=== PATIENT | female | born 1940 | race Caucasian/White ===

== ENCOUNTER → 2017-01-16 | Outpatient (CLI) | payer MEDICARE ==
--- NOTE | 2017-01-16 11:35 | MM ---
Reason for exam: follow-up at short interval from prior study. Last mammogram was performed 6 months ago. History: Patient is postmenopausal. Excisional biopsy of the right breast. Took estrogen for 4 years 6 months. Took progesterone for 4 years 6 months. Physical Findings: Nurse did not find any significant physical abnormalities on exam. MG 3D Diag Mammo W/Cad RT CC and MLO view(s) were taken of the right breast. Prior study comparison: July 17, 2016, right breast MG 3d work up w/cad RT. July 10, 2016, bilateral MG 3d screening mammo w/cad. The breast tissue is heterogeneously dense. This may lower the sensitivity of mammography. No significant new findings when compared with previous films. These results were verbally communicated with the patient and result sheet given to the patient on 01/16/17. ASSESSMENT: Benign, BI-RAD 2 RECOMMENDATION: Return to routine screening mammogram schedule for both breasts. Back on schedule.
== END | disposition home or self-care (01) ==
LOC: RADMAMWWP 10:43
PROVIDERS: ATTEND Family Medicine
DX: R92.8 Other abnormal and inconclusive findings on diagnostic imaging of breast (principal)
CPT/HCPCS: G0206; G0279

== ENCOUNTER → 2017-09-25 | Outpatient (CLI) | payer MEDICARE ==
--- NOTE | 2017-09-25 15:51 | CT ---
EXAMINATION TYPE: CT shoulder RT wo con DATE OF EXAM: 09/25/2017 COMPARISON: NONE HISTORY: Right shoulder pain CT DLP: 292.9 mGycm Automated exposure control for dose reduction was used. FINDINGS: Axial, coronal, sagittal and 3-D reconstruction imaging is performed. There is severe arthropathy of the glenohumeral joint with complete loss of joint space. Hypertrophic spurring is noted. Loss of articular cartilage suspected. No evidence of fracture. There is a chronic appearing deformity of the right clavicle. Correlate for history of previous traum a or surgery. Lung fuentes are clear. No consolidation or pneumothorax. Mild hypertrophic and degenerative change of the spine. IMPRESSION: 1. SEVERE ARTHROPATHY OF THE RIGHT SHOULDER WITH COMPLETE LOSS OF GLENOHUMERAL JOINT SPACE. 2. CHRONIC DEFORMITY AND LIKELY PREVIOUS FRACTURE OF THE RIGHT CLAVICLE.
== END | disposition home or self-care (01) ==
LOC: RADCTMAIN 15:04
PROVIDERS: ATTEND Orthopaedic Surgery Sports Medicine
DX: M21.921 Unspecified acquired deformity of right upper arm (principal); M12.9 Arthropathy, unspecified; M19.011 Primary osteoarthritis, right shoulder

== ENCOUNTER → 2017-10-06 | Outpatient (CLI) | payer MEDICARE ==
--- NOTE | 2017-10-08 08:24 | MM ---
Reason for exam: screening (asymptomatic). Last mammogram was performed 9 months ago. History: Patient is postmenopausal. Excisional biopsy of the right breast. Took estrogen for 4 years 6 months. Took progesterone for 4 years 6 months. Physical Findings: A clinical breast exam by your physician is recommended on an annual basis and results should be correlated with mammographic findings. MG 3D Screening Mammo W/Cad Bilateral CC and MLO view(s) were taken. Prior study comparison: January 16, 2017, right breast MG 3d diag mammo w/cad RT. July 10, 2016, bilateral MG 3d screening mammo w/cad. The breast tissue is heterogeneously dense. This may lower the sensitivity of mammography. No significant changes when compared with prior studies. ASSESSMENT: Benign, BI-RAD 2 RECOMMENDATION: Routine screening mammogram of both breasts in 1 year.
== END | disposition home or self-care (01) ==
LOC: RADMAMWWP 16:09
PROVIDERS: ATTEND Family Medicine
DX: Z12.31 Encounter for screening mammogram for malignant neoplasm of breast (principal)
CPT/HCPCS: 77063; 77067

== ENCOUNTER → 2017-10-06 | Outpatient (CLI) | payer MEDICARE | END | disposition home or self-care (01) | LOC: LABPAT 16:31 | PROVIDERS: ATTEND Orthopaedic Surgery Sports Medicine | DX: Z01.812 Encounter for preprocedural laboratory examination (principal) | CPT/HCPCS: 87070 ==

== ENCOUNTER → 2017-10-16 | Outpatient (CLI) | payer MEDICARE ==
[2017-10-16 13:01] LABS: HCT 44.6 % (34.0-46.0); HGB 14.9 gm/dL (11.4-16.0); MCH 29.3 pg (25.0-35.0); MCHC 33.4 g/dL (31.0-37.0); MCV 87.5 fL (80.0-100.0); Mean Platelet Volume 6.9; Platelet Count 319 k/uL (150-450); RDW 13.6 % (11.5-15.5); WBC 5.2 k/uL (3.8-10.6)
[2017-10-16 13:10] LABS: ALT 29 U/L (9-52); AST 32 U/L (14-36); Albumin 4.2 g/dL (3.5-5.0); Alkaline Phosphatase 79 U/L (38-126); Anion Gap 11 mmol/L; Blood Urea Nitrogen 16 mg/dL (7-17); Calcium 9.6 mg/dL (8.4-10.2); Carbon Dioxide 31 mmol/L (22-30); Chloride 96 mmol/L (98-107); Glucose 99 mg/dL (74-99); Potassium 3.6 mmol/L (3.5-5.1); Sodium 138 mmol/L (137-145); Total Bilirubin 0.6 mg/dL (0.2-1.3); Total Protein 7.1 g/dL (6.3-8.2)
[2017-10-16 13:12] LABS: Appearance,Urine Clear (Clear); Bacteria,Urine Rare /hpf; Bilirubin,Urine Negative (Negative); Blood,Urine Negative (Negative); Color,Urine Yellow; Glucose,Urine (UA) Negative (Negative); Ketones,Urine Negative (Negative); Leukocyte Esterase,Urine Small (Negative); Mucus,Urine Rare /hpf; Nitrite,Urine Negative (Negative); PH, Urine 7.5 (5.0-8.0); Protein,Urine Negative (Negative); Specific Gravity,Urine 1.015 (1.001-1.035); Squamous Epithelial Cell,Urine 1 /hpf (0-4); Urobilinogen,Urine <2.0 mg/dL (<2.0); WBC,Urine 4 /hpf (0-5)
[2017-10-16 13:15] LABS: Prothrombin Time 9.6 sec (9.0-12.0)
[2017-10-16 13:31] LABS: Partial Thromboplastin Time 20.9 sec (22.0-30.0)
== END | disposition home or self-care (01) ==
LOC: LABPAT 12:29
PROVIDERS: ATTEND Orthopaedic Surgery Sports Medicine
DX: Z01.812 Encounter for preprocedural laboratory examination (principal); M19.011 Primary osteoarthritis, right shoulder
CPT/HCPCS: 36415; 80053; 81001; 85027; 85610; 85730

== ENCOUNTER 2017-10-29 10:06 | Inpatient (IN) | payer MEDICARE ==
[2017-10-21 15:48] VITALS: BMI 29.2
[~2017-10-29 10:06] MED LIST: ACETAMINOPHEN TAB 500 MG TAB PO ONE; DEXAMETHASONE SOD PHOSPHATE 10 MG/ML 1 ML VIAL IV ONE; HYDROmorphone 0.5 MG/0.5 ML SYRINGE IVP PRN; LIDOCAINE 1% 20 ML VIAL (10MG/ML) FOR IV START INTRADERMA PRN; MELOXICAM 7.5 MG TAB PO ONE; MIDAZOLAM 2 MG/2 ML VIAL IV PRN; MORPHINE SULFATE 2 MG/ML SYRINGE IV PRN; ONDANSETRON 4 MG/2 ML VIAL IVP ONE; SCOPOLAMINE 1.5MG/72HR PATCH TRANSDERM ONE; TRANEXAMIC ACID 1,000 MG in SODIUM CHLORIDE 0.9% 50 ML IVPB ONE; ceFAZolin IN SWFI 2 GM/20 ML SYRINGE IVP ONE; fentaNYL (PF) 50 MCG/ML 2 ML AMP IV PRN
[2017-10-29] MEDS: LACTATED RINGERS 1,000 ML IV SCH ×2 (10:46→15:49)
[2017-10-29] MEDS ORDERED: MIDAZOLAM 2 MG/2 ML VIAL IV ONE (11:11)
[2017-10-29] MEDS ORDERED: ceFAZolin 3,000 MG in SODIUM CHLORIDE 0.9% IRRIGATIO 3,000 ML IRRIGATION ONE (12:35)
[2017-10-29] MEDS ORDERED: LACTATED RINGERS 1,000 ML IV ONE (13:00)
[2017-10-29] MEDS ORDERED: VANCOMYCIN 1,000 MG VIAL MISCELLANE ONE (13:23)
[2017-10-29] MEDS ORDERED: SENNOSIDES-DOCUSATE SODIUM 1 EACH TAB PO PRN (14:29)
[2017-10-29] MEDS ORDERED: METOCLOPRAMIDE 5 MG/ML 2 ML VIAL IVP PRN (14:29)
[2017-10-29] MEDS ORDERED: ONDANSETRON 4 MG/2 ML VIAL IVP PRN (14:29)
[2017-10-29] MEDS ORDERED: TEMAZEPAM 15 MG CAP PO PRN (14:29)
[2017-10-29] MEDS ORDERED: diphenhydrAMINE 25 MG CAP PO PRN (14:29)
[2017-10-29] MEDS ORDERED: MORPHINE SULFATE/PF 10MG/10ML VL IVP PRN ×3 (14:29)
--- NOTE | 2017-10-29 15:06 | XR ---
Right shoulder HISTORY: Status post right shoulder arthroplasty Single frontal view of the right shoulder correlated to prior exam 02/20/2012 Patient is status post right shoulder arthroplasty. There is an indwelling drain. Alignment is anatom ic. Right lung apex as visualized is normal. Distal right clavicle shows a similar appearance, possib le old fracture. IMPRESSION: Orthopedic follow-up.
[2017-10-29] MEDS: ceFAZolin IN SWFI 2 GM/20 ML SYRINGE IVP SCH (15:49)
--- NOTE | 2017-10-29 16:30 | OP ---
OPERATIVE REPORT DATE OF PROCEDURE: 10/29/2017 SURGEON: Jeffrey Cain MD MOLTEN IRON POURER: bL Herman PA-C PREOPERATIVE DIAGNOSIS: Right shoulder osteoarthrosis. POSTOPERATIVE DIAGNOSIS: Right shoulder osteoarthrosis. OPERATION: 1. Right total shoulder arthroplasty. 2. Right long head of the biceps tenodesis. ANESTHESIA: General endotracheal. ESTIMATED BLOOD LOSS: 100 mL. DRAINS: One deep drain. COMPLICATIONS: None apparent. DISPOSITION: Postanesthesia Care Unit. INDICATIONS: Mrs. Leon is a very pleasant 77-year-old female with long-standing right shoulder pain. Workup including x-rays and CT scan revealed advanced right shoulder osteoarthrosis. At this point, it is felt that she has failed conservative management and she would like to proceed with operative intervention. The risks of the procedure were discussed with her in detail. These risks include but are not limited to risk of infection, nerve damage, bleeding, pain, instability in the shoulder, loosening of the implants and deep infection. There is also a small risk of deep vein thrombosis which could lead to fatal pulmonary embolism. The patient understood the risks. All of her questions with regard to the risks of the procedure were answered to her satisfaction. Appropriate informed consent was obtained. DESCRIPTION OF PROCEDURE: The patient was identified in the preoperative holding area. Surgical site was marked by both the patient and myself. She was given 2 grams of Ancef IV for prophylactic purposes. She was then transferred to the operative suite. She was placed supine on the operating room table. General anesthetic was then administered and dosed per the anesthesia department without apparent complication. Examination under anesthesia was then performed of the right shoulder. She had passive elevation to 120 degrees. External rotation at the side was to 30 degrees. The patient's right upper extremity was then prepped and draped in the usual sterile fashion. Standard surgical pause was then undertaken to ensure that we were operating on the correct site and that appropriate preoperative antibiotics had been given. All staff in the room were in agreement and we proceeded. The acromion, AC joint, clavicle and coracoid were marked with a surgical pen. A planned incision starting at the level of the clavicle and extending distally over the deltopectoral interval approximately 1 cm lateral to the coracoid was marked with a surgical pen. The incision was then made with a 10-blade scalpel. Dissection was carried down sharply to the deltoid fascia. The deltopectoral interval was identified at the level of the clavicle. A small band retractor was placed under the proximal deltoid. I then released the deltoid fascia on the lateral aspect of the cephalic vein. The vein was then left in its bed medially. The cephalic vein was protected throughout the entire case. I then identified the clavipectoral fascia. It was incised proximally to the level of the coracoacromial ligament. The coracoacromial ligament was left intact. I then used my finger to spread the interval between the conjoint tendon and the subscapularis. I felt for the axillary nerve, which was readily palpable. I then cleared the subacromial and subdeltoid spaces of bursal and scar tissue. I then utilized a Parrish retractor to hold the deltoid and expose the humeral head. I then proceeded with release of the subscapularis and the anterior inferior shoulder capsule. The rotator cuff was inspected. It was found to be intact. The rotator interval was identified. The course of the biceps tendon was also identified. I then released the rotator interval. It was released at the base of the coracoid and then out laterally. The subscapularis and capsule were then released intratendinously. The subscapularis and capsule were released and extended distally in a lazy-S fashion approximately 1 cm medial to the biceps tendon. I then incised the long head of the biceps tendon sheath. I then performed an in situ tenodesis of the long head of the biceps tendon with 0 Vicryl interrupted suture. The aspect of the biceps proximal to the tenodesis was then tenotomized and removed. I then continued to release the capsule along the inferior neck in a vertical fashion to about the 6 o'clock position. Great care was taken to ensure that the capsule was always visualized as it was released to avoid injuring the axillary nerve. I then brought a Shetty newsstand vendor with the arm externally rotated and abducted. I continued to release the capsule inferomedially to the 4 o'clock position. The inferior osteophytes were now removed as well. This was done with a rongeur. I then proceeded with preparation of the humerus. I removed all the goat's crane osteophytes. I then removed the subchondral plate from the superior aspect of the humeral head utilizing a large rongeur. I then used a starter reamer to gain access to the humeral canal. This was 1 cm medial to the rotator cuff insertion and 1 cm posterior to the bicipital groove. I then prepared the humeral canal with hand reaming. I started with a 5 mm reamer and progressed in 1 mm increments until firm resistance was encountered. This was at 7 mm. The reamer handle was then left in place. I then utilized the humeral resection guide. This was set at 30 degrees of retrotorsion. The cutting block was then set 1 to 2 mm above the insertion of the rotator cuff. I then proceeded to osteotomize the head with an oscillating saw. I removed the resection guide and then completed the osteotomy. I then proceeded with trial stem placement. A trial size 7 was then broached in the canal, at first starting with a 5 mm broach and then up to a 7 broach. The 7 trial stem was then left in place. I then proceeded with a trial reduction. I started with a 38 x 19 x 39 head. This fit very nicely. The head fit opposite the glenoid. The rotator cuff was not tented. Internal rotation was at 90 degrees. Elevation was to 150 degrees and translation was one half of the head in neutral rotation and inferiorly one quarter of the head in 15 to 20 degrees of abduction. I then removed the trial head. The stem was left in place. This was done to protect the proximal humerus. I then proceeded with exposure of the glenoid. At this point, I did release the remainder of the biceps tendon. This was tenotomized at the level of the superior labrum. A bone hook was then used to pull the humerus out laterally. I inspected the joint for loose bodies. There was a very large loose body in the inferior recess. This was removed. The condition of the rotator cuff was again inspected. It was in excellent condition. The Bhattman retractor was then placed on the posterior glenoid rim. The arm was placed in approximately 80 degrees of abduction and in slight flexion on the Shetty stand. I then proceeded to remove the hypertrophic labrum to definitively identify the actual glenoid. I then selected the size of the glenoid. A small-sized glenoid seemed to fit very nicely. I then utilized a starter drill to make the centering hole. I then proceeded to ream the glenoid fossa. This was done with a small-sized reamer. The reaming was taken down to paprika signs. I had a nice bleeding surface. There was a tiny bit of posteroinferior loss. I preferentially took off slightly more anterior glenoid with reaming. I then proceeded to place the glenoid drill holes. The peripheral drill holes were then placed and centered. The center hole was then drilled as well. I then placed a trial size small glenoid and it fit very nicely onto the glenoid. I then proceed with cementing. I used a Waterpik around the wound and the bone with antibiotic-impregnated saline solution. The drill holes were then packed with Ray-Carly sponges. The cement was then mixed on the back table by the political science research assistant. The drill holes were then packed with cement utilizing a 20 mL cement syringe. These were packed very tightly. No cement was placed in the central holes. A small amount of cement was then placed on to the posterior aspect of the real glenoid component as well. I then impacted the real glenoid component into place. It was a Biomet small-sized pegged glenoid component with a Regenerex central peg. Excess cement was removed utilizing the freer elevator. Pressure was held onto the glenoid component until the cement had hardened. I then removed the Bhattman retractor. I then proceeded with humeral component trial reduction with the glenoid. The 38 x 19 x 39 head was then placed back onto the stem. Again this was taken through a trial. The head set opposite the glenoid. The rotator cuff was not tented. Elevation was 150 degrees, internal rotation to 90 degrees and translation was one half of the head in neutral rotation and one quarter of the head in 15 to 20 degrees of abduction. I then had the phlebotomy services representative open the 38 x 19 x 39 real head, a size 7 Biomet Mini Stem. The stem was then impacted into the canal and 30 degrees of retrotorsion. The real head was then impacted onto the stem. The shoulder was reduced. I then proceeded with closure. The wound was again thoroughly irrigated with sterile saline solution with antibiotic added. The rotator interval was closed with 0 Vicryl interrupted suture. The subscapularis and anterior capsule was closed with #2 FiberWire interrupted suture. A deep drain was then placed and brought out superiorly away from the incision. Approximately 500 mg of vancomycin powder was then spread deeply in the wound. I then closed the deltopectoral interval with 0 Vicryl interrupted suture. Again the wound was thoroughly irrigated at this point. The remaining 500 mg of vancomycin powder was then placed into the wound. Subcutaneous tissue was then closed with 2-0 Vicryl interrupted suture and the skin was closed with a running 3-0 Quill suture. Sterile compressive dressing was then applied. The patient's right upper extremity was placed into a shoulder immobilizer. All sponge and needle counts were deemed correct prior to closure. The patient tolerated the procedure without apparent complication. She was transferred to the recovery room in stable condition. CELY / MITZY: [id number] /
--- NOTE | 2017-10-29 18:36 | P.ONQ ---
Anesthesiology Proc Note - PNB - Peripheral Nerve Block Performed Right Interscalene Single Time Out Performed: Yes Procedure Start Time: 11:10 Procedure Stop Time: 11:16 Indication: Acute Post-Operative Pain, Requested by physician Sedation Type: Sedate with meaningful contact maintained Preparation: Sterile Prep Position: Supine Needle Size: 100mm (4") Needle Gauge: 21 Technique: Ultrasound Injectate: 0.5% Ropivacaine (see comment for volume) (ropi .5% 30cc) Blood Aspirated: No Pain Paresthesia on Injection Noted: No Resistance on Injection: Normal Events: Uneventful and Well Tolerated
--- NOTE | 2017-10-29 20:51 | CONS ---
CONSULTATION DATE OF CONSULTATION: 10/29/2017. REASON FOR CONSULTATION: Advice regarding hypertension, hyperlipidemia, and other medical issues requested by Dr. Cain. HISTORY OF PRESENT ILLNESS: This 77-year-old woman with a past history of hypertension, DJD, history of constipation, history of UTI, anxiety, depression, anxiety being followed by primary physician in the outpatient setting, underwent right total shoulder arthroplasty by Dr. Cain. There is no history of chest pain. No palpitations. No history of headache, loss of consciousness, nausea, vomiting, diarrhea, fever, rigors or chills at this time. PAST MEDICAL HISTORY: Hypertension, hyperlipidemia, DJD, history of thyroid disorders, recurrent UTI. MEDICATIONS: Medications prior to admission include: 1. Effexor XR 75 mg q.h.s. 2. Bactrim DS 1 p.o. b.i.d. 3. Pravastatin 80 mg q.h.s. 4. Centrum 1 p.o. daily. 5. Levothyroxine 100 mcg p.o. daily. 6. Probiotic 1 capsule p.o. daily. 7. Hydrochlorothiazide 25 mg q.a.m. 8. Osteo Bi-Flex 1 tab p.o. daily. 9. Ecotrin 81 mg. ALLERGIES: None. FAMILY HISTORY: History of cancer, throat laryngeal cancer. SOCIAL HISTORY: Previous of smoking. Occasional alcohol intake. REVIEW OF SYSTEMS: ENT: No diminished hearing or vision. CARDIOVASCULAR: No angina or palpitations. Respiratory: No cough or hemoptysis. GI no nausea or vomiting. no dysuria or hematuria. Nervous system: No numbness, weakness. Allergy/Immunology: No asthma or hayfever. Musculoskeletal as mentioned earlier. Hematology/Oncology: No history of anemia. Endocrine: No history of diabetes. Hypothyroidism present. Constitutional: As mentioned earlier. Dermatology: Negative. Rheumatology: Negative. Psychiatric: As mentioned earlier. PHYSICAL EXAMINATION: Patient is alert, oriented times three. Pulse 99, blood pressure 106/68, respiration 18, temperature 98 degrees, pulse ox 94% on room air. HEENT is conjunctivae normal. Oral mucosa moist. Neck is no jugular venous distention. No carotid bruit. No lymph node enlargement. Cardiovascular: S1, S2 muffled. No S3, no S4. Respiratory: Breath sounds diminished in the bases. No rhonchi and no crackles. ABDOMEN: Soft, nontender. No mass palpable. Legs no edema and no swelling. NERVOUS SYSTEM: Higher functions as mentioned earlier, moves all 4 limbs, no focal motor or sensory deficits. Lymphatics: No lymph nodes palpable in the neck, axillae or groin. SKIN: No ulcers, rash or bleeding. Examination of the shoulder status post shoulder arthroplasty. LABORATORY DATA: CBC within normal limits. INR within normal limits. CO2 is 31, otherwise UA shows possibly UTI. ASSESSMENT: 1. Status post right total shoulder arthroplasty. 2. Hypertension. 3. Hyperlipidemia. 4. Recent urinary tract infection. 5. Degenerative joint disease. 6. History of constipation. 7. History of degenerative joint disease. 8. History of anxiety. 9. Remote history of nicotine dependence. RECOMMENDATIONS AND DISCUSSION: This 77-year-old woman who presented with multiple medical issues, at this time I recommend to continue current management. Continue symptomatic treatment. Recommend repeat labs, CBC, DVT prophylaxis. Resume the home medications. Otherwise I would also recommend a repeat UA. We will follow the patient closely with you and the patient may be asked to follow up with primary physician in the outpatient setting. Thank you Dr. Ant Aguirre for letting us participate in the care of this patient. MMODL / IJN: [id number] /
[2017-10-29] MEDS: HYDROcodone/APAP 5-325MG 1 EACH TAB PO PRN (20:59)
[2017-10-29] MEDS: PRAVASTATIN SODIUM 80 MG TAB PO SCH (21:00)
[2017-10-29] MEDS: VENLAFAXINE HCL ER 75 MG CAP PO SCH (21:00)
[2017-10-29] MEDS: SULFAMETHOX-TMP 800-160MG 1 EACH TAB PO SCH (21:00)
[2017-10-30] MEDS: ceFAZolin IN SWFI 2 GM/20 ML SYRINGE IVP SCH (00:25)
[2017-10-30] MEDS: LACTATED RINGERS 1,000 ML IV SCH ×4 (00:26→16:51)
[2017-10-30] MEDS: HYDROcodone/APAP 5-325MG 1 EACH TAB PO PRN ×3 (05:02→16:51)
[2017-10-30 05:19] LABS: Appearance,Urine Clear (Clear); Bilirubin,Urine Negative (Negative); Blood,Urine Negative (Negative); Color,Urine Yellow; Glucose,Urine (UA) Negative (Negative); Ketones,Urine Negative (Negative); Leukocyte Esterase,Urine Small (Negative); Mucus,Urine Rare /hpf; Nitrite,Urine Negative (Negative); Protein,Urine Negative (Negative); RBC,Urine 1 /hpf (0-5); Specific Gravity,Urine 1.018 (1.001-1.035); Squamous Epithelial Cell,Urine 1 /hpf (0-4); Urobilinogen,Urine <2.0 mg/dL (<2.0); WBC,Urine 7 /hpf (0-5)
[2017-10-30] MEDS: LEVOTHYROXINE 100 MCG TAB PO SCH (05:20)
[2017-10-30 07:56] LABS: Basophils % (A) 0 %; Eosinophils % (A) 0 %; HCT 32.7 % (34.0-46.0); Lymphocytes % (A) 10 %; MCH 29.4 pg (25.0-35.0); MCV 86.4 fL (80.0-100.0); Mean Platelet Volume 7.4; Monocytes # (A) 0.7 k/uL (0-1.0); Monocytes % (A) 7 %; Neutrophils # (A) 8.1 k/uL (1.3-7.7); Neutrophils % (A) 81 %; Platelet Count 238 k/uL (150-450); RBC 3.78 m/uL (3.80-5.40); RDW 13.8 % (11.5-15.5); WBC 9.9 k/uL (3.8-10.6)
[2017-10-30 07:58] LABS: HGB 11.1 gm/dL (11.4-16.0)
[2017-10-30] MEDS: HYDROCHLOROTHIAZIDE 25 MG TAB PO SCH (08:30)
[2017-10-30] MEDS: SULFAMETHOX-TMP 800-160MG 1 EACH TAB PO SCH ×2 (08:30→20:19)
[2017-10-30] MEDS: ASPIRIN 81 MG PO SCH (08:30)
[2017-10-30] MEDS: hydrOXYzine PAMOATE 25 MG CAP PO PRN ×2 (10:59→16:52)
--- NOTE | 2017-10-30 11:32 | P.PN ---
Subjective Progress Note Date: 10/30/17 Principal diagnosis: s/p right total shoulder Patient is seen at bedside this morning. She is postop day #1 from a right total shoulder arthroplasty. She has pain at the surgical site as expected but denies any new complaints. She denies numbness, tingling or calf pain. Review of systems is negative for fever, chills, chest pain, shortness of breath or other Objective - Vital Signs Vital signs: Vital Signs Temp 98.9 F 10/30/17 08:31 Pulse 97 10/30/17 08:31 Resp 17 10/30/17 08:31 BP 103/56 10/30/17 08:31 Pulse Ox 96 10/30/17 08:31 Intake & Output 10/29/17 10/30/17 10/30/17 18:59 06:59 18:59 Intake Total 1351 1800 Output Total 100 Balance 1251 1800 Weight 72.575 kg Intake: IV 1351 Intake, IV Titration 1150 Amount Lactated Ringers 1,000 ml 1150 @ 100 mls/hr IV .Q10H [facility] Rx#:[id number] Oral 650 Output: Estimated Blood Loss 100 Other: Voiding Method Toilet Toilet # Voids 2 1 - Exam Inspection reveals a benign surgical wound. There is no active bleeding or drainage. Neurovascular status is intact throughout the upper extremity with motor and sensation fully intact. 2+ radial pulse and less than 2 sec cap refill present. Calf is soft and nontender. 2+ dorsalis pedis pulse and less than 2 second cap refill is present distally in LEs - Constitutional General appearance: Present: no acute distress - Psychiatric Psychiatric: Present: A&O x's 3, appropriate affect, intact judgment & insight - Labs CBC & Chem 7: 10/30/17 06:48 Labs: Abnormal Lab Results - Last 24 Hours (Table) 10/30/17 10/30/17 Range/Units 05:00 06:48 RBC 3.78 L (3.80-5.40) m/uL Hgb 11.1 L D (11.4-16.0) gm/dL Hct 32.7 L (34.0-46.0) % Neutrophils # 8.1 H (1.3-7.7) k/uL Ur Leukocyte Esterase Small H (Negative) Urine WBC 7 H (0-5) /hpf Urine Mucus Rare H (None) /hpf Assessment and Plan (1) Osteoarthritis of right shoulder Narrative/Plan: She will continue with routine postop orthopedic protocol including pain management, wound care, DVT prophylaxis and medical management. Expect that she will discharge to home tomorrow. Current Visit: Yes Status: Acute Priority: Medium Code(s): M19.011 - PRIMARY OSTEOARTHRITIS, RIGHT SHOULDER SNOMED Code(s): 159141457133394 Time with Patient: Less than 30
[2017-10-30] MEDS ORDERED: LEVOFLOXACIN 500MG-D5W PMX 500 MG in DEXTROSE/WATER 1 100ML.BAG IVPB SCH (12:00)
[2017-10-30] MEDS ORDERED: MULTIVITAMINS, THERA 1 EACH TAB PO SCH (12:00)
--- NOTE | 2017-10-30 19:46 | PN ---
PROGRESS NOTE DATE OF SERVICE: 10/30/2017 This 77-year-old woman who was admitted after right shoulder arthroplasty is improving, being monitored. Patient improved significantly. No chest pain. No palpitations. No fever. EXAM: Alert and oriented times three. Pulse 98. Blood pressure 92/52, respiration 16, temperature 98.4, pulse ox 97% on room air. HEENT: Conjunctivae normal. Oral mucosa moist. Neck: No jugular venous distention. Cardiovascular: S1, S2 muffled. Respiration: Breath sounds diminished in the bases. No rhonchi. No crackles. Abdomen is soft, nontender. Legs: No edema and no swelling. Central nervous system: No focal deficits. Right shoulder status post arthroplasty. LAB STUDIES: WBC 9.9, hemoglobin 11.1. UA noted. ASSESSMENT: 1. Status post right shoulder arthroplasty. 2. Hypertension. 3. Urinary tract infection present on admission. 4. Hyperlipidemia. 5. Degenerative joint disease. 6. History of constipation. 7. History of anxiety. 8. Remote history of nicotine dependence. RECOMMENDATIONS AND DISCUSSION: Recommend to continue current medications, management and symptomatic treatment. I would recommend a course of antibiotics. Closely monitor urine culture. Incentive spirometry. DVT prophylaxis. We will follow the patient closely with you. Thank you Dr. Cain. MMMIKEL / IJN: [id number] /
[2017-10-30] MEDS: PRAVASTATIN SODIUM 80 MG TAB PO SCH (20:19)
[2017-10-30] MEDS: VENLAFAXINE HCL ER 75 MG CAP PO SCH (20:19)
[2017-10-30] MEDS: HEPARIN SODIUM,PORCINE 5,000 UNIT/ML 1 ML VIAL SQ SCH (20:19)
[2017-10-31] MEDS: LACTATED RINGERS 1,000 ML IV SCH ×2 (03:10→05:43)
[2017-10-31] MEDS: HYDROcodone/APAP 5-325MG 1 EACH TAB PO PRN ×2 (03:55→11:20)
[2017-10-31] MEDS: hydrOXYzine PAMOATE 25 MG CAP PO PRN (03:55)
[2017-10-31] MEDS: LEVOTHYROXINE 100 MCG TAB PO SCH (06:01)
[2017-10-31 07:34] LABS: Anion Gap 8 mmol/L; Blood Urea Nitrogen 13 mg/dL (7-17); Calcium 8.8 mg/dL (8.4-10.2); Carbon Dioxide 32 mmol/L (22-30); Chloride 95 mmol/L (98-107); Glucose 89 mg/dL (74-99); Sodium 135 mmol/L (137-145)
[2017-10-31] MEDS: HEPARIN SODIUM,PORCINE 5,000 UNIT/ML 1 ML VIAL SQ SCH (09:10)
[2017-10-31] MEDS: HYDROCHLOROTHIAZIDE 25 MG TAB PO SCH (09:10)
[2017-10-31] MEDS: ASPIRIN 81 MG PO SCH (09:10)
[2017-10-31] MEDS: SULFAMETHOX-TMP 800-160MG 1 EACH TAB PO SCH (09:11)
--- NOTE | 2017-10-31 09:16 | P.DS ---
Providers Date of admission: 10/29/17 10:06 Expected date of discharge: 10/31/17 Attending physician: Jeffrey Cain Consults: 10/29/17 14:29 Consult Physician Routine Consulting Provider: Sabino Bajwa Consult Reason/Comments: post op medical management Do you want consulting provider notified?: Yes Primary care physician: Turner Marquez - Discharge Diagnosis(es) (1) Osteoarthritis of right shoulder Patient was admitted to the OR on 10/29/2017 to undergo Right Total Shoulder Arthroplasty. She had failed conservative measures as an outpatient and desired to proceed with elective surgery after given informed consent She underwent the above procedure which she tolerated well without complication. Postoperative hospital course has remained without complication. On day of discharge she is afebrile, vital signs stable, labs within acceptable ranges, tolerating by mouth meds and diet, voiding without difficulty, positive flatus, denies abdominal pain or calf pain, pain is controlled on oral pain medication and has no new complaints. Wound is benign, neurovascular status is intact, calf is soft and nontender, abdomen soft and nontender. Review of systems is negative for numbness, tingling, fever, chills, chest pain, shortness breath, nausea, vomiting, dizziness, headaches, slurred speech or other. Current Visit: Yes Status: Acute Priority: Medium Procedures: Right Total Shoulder Patient Condition at Discharge: Good Plan - Discharge Summary Discharge Rx Participant: Yes New Discharge Prescriptions: New Docusate [Colace] 100 mg PO BID #60 capsule Doxycycline Hyclate 100 mg PO BID #10 tab HYDROcodone/APAP 7.5-325MG [[place] 7.5-325] 1 - 2 tab PO Q6HR PRN #60 tab PRN Reason: Pain No Action Sulfamethox-Tmp 800-160Mg [Bactrim DS 800-160 mg] 1 tab PO Q12HR Venlafaxine HCl ER [Effexor Xr] 75 mg PO HS Pravastatin Sodium 80 mg PO HS Multivit-Min/FA/Lycopen/Lutein [Centrum Silver Tablet] 1 tab PO DAILY Levothyroxine Sodium 100 mcg PO QAM L.acidoph,Paracasei, B.lactis [Probiotic] 1 cap PO DAILY Hydrochlorothiazide 25 mg PO QAM Glucosamine/Chondr De Leon A Sod [Osteo Bi-Flex Caplet] 1 tab PO DAILY Aspirin [Adult Low Dose Aspirin EC] 81 mg PO DAILY Discharge Medication List Aspirin [Adult Low Dose Aspirin EC] 81 mg PO DAILY 10/21/17 [History] Glucosamine/Chondr De Leon A Sod [Osteo Bi-Flex Caplet] 1 tab PO DAILY 10/21/17 [ History] Hydrochlorothiazide 25 mg PO QAM 10/21/17 [History] L.acidoph,Paracasei, B.lactis [Probiotic] 1 cap PO DAILY 10/21/17 [History] Levothyroxine Sodium 100 mcg PO QAM 10/21/17 [History] Multivit-Min/FA/Lycopen/Lutein [Centrum Silver Tablet] 1 tab PO DAILY 10/21/17 [ History] Pravastatin Sodium 80 mg PO HS 10/21/17 [History] Sulfamethox-Tmp 800-160Mg [Bactrim DS 800-160 mg] 1 tab PO Q12HR 10/21/17 [ History] Venlafaxine HCl ER [Effexor Xr] 75 mg PO HS 10/21/17 [History] Docusate [Colace] 100 mg PO BID #60 capsule 10/31/17 [Rx] Doxycycline Hyclate 100 mg PO BID #10 tab 10/31/17 [Rx] HYDROcodone/APAP 7.5-325MG [[place] 7.5-325] 1 - 2 tab PO Q6HR PRN #60 tab [Rx] Follow up Appointment(s)/Referral(s): Jeffrey Cain MD [STAFF PHYSICIAN] - 10 Days Activity/Diet/Wound Care/Special Instructions: Keep wound clean and dry Take meds as directed Follow-up with Dr. Cain in office Weight bear as tolerated Discharge Disposition: HOME WITH HOME HEALTH SERVICES
[2017-10-31 13:31] VITALS: BP 116/56; PULSE 94; RESP 16; TEMP 98.2
--- NOTE | 2017-10-31 14:14 | PN ---
PROGRESS NOTE DATE OF SERVICE: 10/31/2017 This 77-year-old woman was admitted with right shoulder arthroplasty, also had UTI. No chest pain. No palpitations. No fever. EXAM: Alert and oriented times three. Pulse 101. Blood pressure 130/60, respiration 18, temperature 98.2, pulse ox 94% on room air. HEENT: Conjunctivae normal. Neck is no jugular venous distention. Cardiovascular: S1, S2 muffled. Respiratory: Breath sounds diminished in the bases. No rhonchi and no crackles. Abdomen is soft, nontender. Legs are no edema. No swelling. central nervous system: No focal deficits. Right shoulder status arthroplasty. LABS: Noted. ASSESSMENT: 1. Status post right shoulder arthroplasty. 2. Hypertension. 3. Urinary tract infection present on admission. 4. Hyperlipidemia. 5. Degenerative joint disease. 6. History of constipation. 7. History of anxiety. 8. Remote history of nicotine dependence. RECOMMENDATIONS AND DISCUSSION: Recommend to continue current medication, continue symptomatic treatment. Otherwise, at this time, I recommend continue the current medications. Course of antibiotics. Otherwise recommend to closely follow up with primary physician in the outpatient setting. Further recommendations to follow. The rest of the recommendations per Orthopedic surgery. Further recommendations to follow. MMODL / IJN: [id number] /
== END 2017-10-31 14:15 | disposition home health service (06) | DRG 483 ==
LOC: 2ORMAIN 10:06 → 3SUR 14:27
PROVIDERS: ADMIT Orthopaedic Surgery Sports Medicine; ATTEND Orthopaedic Surgery Sports Medicine
PROC: 0LS30ZZ Reposition Right Upper Arm Tendon, Open Approach (ICD-10-PCS; 2017-10-29)
PROC: 0RRJ0JZ Replacement of Right Shoulder Joint with Synthetic Substitute, Open Approach (ICD-10-PCS; principal; 2017-10-29 12:00)
DX: M19.011 Primary osteoarthritis, right shoulder (principal); N39.0 Urinary tract infection, site not specified; E03.9 Hypothyroidism, unspecified; E78.5 Hyperlipidemia, unspecified; I10 Essential (primary) hypertension; M19.90 Unspecified osteoarthritis, unspecified site; F32.9 Major depressive disorder, single episode, unspecified; K59.09 Other constipation; E66.3 Overweight; M25.711 Osteophyte, right shoulder; E78.2 Mixed hyperlipidemia; F41.9 Anxiety disorder, unspecified; Z79.899 Other long term (current) drug therapy; Z79.02 Long term (current) use of antithrombotics/antiplatelets; Z87.891 Personal history of nicotine dependence; Z80.2 Family history of malignant neoplasm of other respiratory and intrathoracic organs; Z87.440 Personal history of urinary (tract) infections; Z79.82 Long term (current) use of aspirin; Z90.49 Acquired absence of other specified parts of digestive tract; Z83.3 Family history of diabetes mellitus; Z98.51 Tubal ligation status; Z68.29 Body mass index [BMI] 29.0-29.9, adult; Z71.3 Dietary counseling and surveillance
CPT/HCPCS: 64415; 80048; 81001; 85025; 87086; 88300

== ENCOUNTER 2017-11-05 13:46 | Emergency (ER) | payer MEDICARE ==
[2017-11-05 15:34] LABS: Basophils # (A) 0.1 k/uL (0-0.2); Basophils % (A) 1 %; Eosinophils # (A) 0.2 k/uL (0-0.7); Eosinophils % (A) 2 %; HCT 38.6 % (34.0-46.0); HGB 12.7 gm/dL (11.4-16.0); Lymphocytes # (A) 1.2 k/uL (1.0-4.8); Lymphocytes % (A) 18 %; MCH 29.1 pg (25.0-35.0); MCV 88.1 fL (80.0-100.0); Mean Platelet Volume 6.9; Monocytes # (A) 0.5 k/uL (0-1.0); Monocytes % (A) 7 %; Neutrophils # (A) 5.1 k/uL (1.3-7.7); Neutrophils % (A) 71 %; Platelet Count 367 k/uL (150-450); RBC 4.38 m/uL (3.80-5.40); WBC 7.1 k/uL (3.8-10.6)
[2017-11-05 15:48] LABS: Anion Gap 11 mmol/L; Blood Urea Nitrogen 12 mg/dL (7-17); Calcium 9.6 mg/dL (8.4-10.2); Carbon Dioxide 33 mmol/L (22-30); Chloride 92 mmol/L (98-107); Glucose 98 mg/dL (74-99); Potassium 4.1 mmol/L (3.5-5.1); Sodium 136 mmol/L (137-145)
--- NOTE | 2017-11-05 16:56 | US ---
EXAMINATION TYPE: US venous doppler duplex LE RT DATE OF EXAM: 11/05/2017 3:43 PM COMPARISON: NONE CLINICAL HISTORY: Pain. Pt states right leg pain, recent shoulder surgery SIDE PERFORMED: Right TECHNIQUE: The lower extremity deep venous system is examined utilizing real time linear array sonog jayne with graded compression, doppler sonography and color-flow sonography. VESSELS IMAGED: External Iliac Vein (EIV) Common Femoral Vein Deep Femoral Vein Greater Saphenous Vein * Femoral Vein Popliteal Vein Small Saphenous Vein * Proximal Calf Veins (* superficial vessels) Grayscale, color doppler, spectral doppler imaging performed of the deep veins of the right lower ext remity. There is normal flow, compressibility, vascular waveforms. Right Leg: Negative for DVT IMPRESSION: No sonographic evidence of deep venous thrombosis within the right lower extremity.
--- NOTE | 2017-11-05 17:22 | ED ---
General Adult HPI - General Chief complaint: Extremity Injury, Lower Stated complaint: Poss DVT in leg Time Seen by Provider: 11/05/17 14:51 Source: patient Mode of arrival: ambulatory Limitations: no limitations - History of Present Illness Initial comments: 77-year-old female who recently had a total shoulder replacement by Dr. Cain for evaluation of right calf discomfort. She states that for the last 2 days she's been having pain in the calf that is worse when she starts to ambulate but improves as she continues to walk. He states that the leg feels tight and she has no history of similar symptoms and is not on blood thinners. She denies any associated shortness of breath or cough or chest pain. There is no overlying swelling or erythema however she does state that the leg appears to be a little bit more glossy and shiny than the other. - Related Data Home Medications Medication Instructions Recorded Confirmed Aspirin [Adult Low Dose Aspirin EC] 81 mg PO DAILY 10/21/17 11/05/17 Glucosamine/Chondr De Leon A Sod [Osteo 1 tab PO HS 10/21/17 11/05/17 Bi-Flex Caplet] Hydrochlorothiazide 25 mg PO QAM 10/21/17 11/05/17 L.acidoph,Paracasei, B.lactis 1 cap PO HS 10/21/17 11/05/17 [Probiotic] Levothyroxine Sodium 100 mcg PO QAM 10/21/17 11/05/17 Multivit-Min/FA/Lycopen/Lutein 1 tab PO HS 10/21/17 11/05/17 [Centrum Silver Tablet] Pravastatin Sodium 80 mg PO HS 10/21/17 11/05/17 Venlafaxine HCl ER [Effexor Xr] 75 mg PO HS 10/21/17 11/05/17 Previous Rx's Medication Instructions Recorded HYDROcodone/APAP 7.5-325MG [Stella 1 - 2 tab PO Q6HR PRN #60 tab 10/31/17 7.5-325] Allergies Allergy/AdvReac Type Severity Reaction Status Date / Time No Known Allergies Allergy Verified 11/05/17 15:25 Review of Systems ROS Statement: Those systems with pertinent positive or pertinent negative responses have been documented in the HPI. ROS Other: All systems not noted in ROS Statement are negative. Constitutional: Denies: fever, chills Eyes: Denies: eye pain, vision change ENT: Denies: ear pain, throat pain Respiratory: Denies: cough, dyspnea, wheezes Cardiovascular: Denies: chest pain, palpitations Endocrine: Denies: fatigue, polydipsia, polyuria Gastrointestinal: Denies: abdominal pain, nausea, vomiting Genitourinary: Denies: urgency, dysuria Musculoskeletal: Reports: other (right calf pain). Denies: back pain, arthralgia, myalgia Skin: Denies: rash, lesions Neurological: Denies: headache, weakness Psychiatric: Denies: anxiety, depression Hematological/Lymphatic: Denies: easy bleeding, easy bruising Past Medical History Past Medical History: Hyperlipidemia, Hypertension, Osteoarthritis (OA), Thyroid Disorder Additional Past Medical History / Comment(s): Constipation. States current UTI that Dr Cain prescribed antibiotics for. States he told her to start antibiotic on 10/26/17 - advised to call office now to verify this information. History of Any Multi-Drug Resistant Organisms: None Reported Past Surgical History: Appendectomy, Orthopedic Surgery, Tubal Ligation Additional Past Surgical History / Comment(s): Radioactive iodine treatment in 1980 on thyroid.TRS Past Anesthesia/Blood Transfusion Reactions: No Reported Reaction Past Psychological History: Anxiety Smoking Status: Former smoker Past Alcohol Use History: Occasional Past Drug Use History: None Reported - Past Family History Mother Family Medical History: Cancer Additional Family Medical History / Comment(s): Throat/jaw cancer General Exam Limitations: no limitations General appearance: alert, in no apparent distress Head exam: Present: atraumatic, normocephalic Eye exam: Present: normal appearance, PERRL, EOMI. Absent: scleral icterus, conjunctival injection ENT exam: Present: normal exam, normal oropharynx Neck exam: Present: normal inspection, full ROM. Absent: tenderness Respiratory exam: Present: normal lung sounds bilaterally. Absent: respiratory distress, wheezes, rales, rhonchi, stridor Cardiovascular Exam: Present: regular rate, normal rhythm GI/Abdominal exam: Present: soft. Absent: distended, tenderness, guarding, rebound, rigid Rectal exam: Present: deferred Extremities exam: Present: calf tenderness, other (right shoulder bandaged and in sling from recent surgery) Back exam: Present: normal inspection, full ROM Neurological exam: Present: alert, oriented X3 Psychiatric exam: Present: normal affect, normal mood Skin exam: Present: warm, dry, intact Course Vital Signs 11/05/17 11/05/17 14:18 17:33 Temperature 98.2 F 97.8 F Pulse Rate 94 95 Respiratory 18 16 Rate Blood Pressure 120/68 144/65 O2 Sat by Pulse 99 98 Oximetry EKG Findings - EKG Comments: EKG Findings:: Normal sinus rhythm with a ventricular rate of 87, JANETTE 140, QRS 80, QT/QTC 364/438 Medical Decision Making - Medical Decision Making 77-year-old female with recent surgery to her right shoulder presented for evaluation of discomfort to the right posterior calf. She was seen by her orthopedic surgeon Dr. Cain and sent for evaluation of DVT. Labs are obtained which showed a positive d-dimer but this is likely attributable to the patient's recent surgery to the shoulder. Lower extremity duplex and Doppler did not show acute DVT and no other abnormalities were noted. The patient was informed of these results and that she will be discharged with instructions to follow-up with her orthopedic surgeon and primary care physician but to return to this facility if her symptoms should worsen or persist. The patient acknowledged an understanding of all information provided and agreed with this plan of care. - Lab Data Result diagrams: 11/05/17 15:11 11/05/17 15:11 Lab Results 11/05/17 11/05/17 11/05/17 Range/Units 15:11 15:11 15:11 WBC 7.1 (3.8-10.6) k/uL RBC 4.38 (3.80-5.40) m/uL Hgb 12.7 (11.4-16.0) gm/dL Hct 38.6 (34.0-46.0) % MCV 88.1 (80.0-100.0) fL MCH 29.1 (25.0-35.0) pg MCHC 33.0 (31.0-37.0) g/dL RDW 14.0 (11.5-15.5) % Plt Count 367 (150-450) k/uL Neutrophils % 71 % Lymphocytes % 18 % Monocytes % 7 % Eosinophils % 2 % Basophils % 1 % Neutrophils # 5.1 (1.3-7.7) k/uL Lymphocytes # 1.2 (1.0-4.8) k/uL Monocytes # 0.5 (0-1.0) k/uL Eosinophils # 0.2 (0-0.7) k/uL Basophils # 0.1 (0-0.2) k/uL D-Dimer 3.52 H (<0.60) mg/L FEU Sodium 136 L (137-145) mmol/L Potassium 4.1 (3.5-5.1) mmol/L Chloride 92 L (98-107) mmol/L Carbon Dioxide 33 H (22-30) mmol/L Anion Gap 11 mmol/L BUN 12 (7-17) mg/dL Creatinine 0.50 L (0.52-1.04) mg/dL Est GFR (CKD-EPI)AfAm >90 (>60 ml/min/1.73 sqM) Est GFR (CKD-EPI)NonAf >90 (>60 ml/min/1.73 sqM) Glucose 98 (74-99) mg/dL Calcium 9.6 (8.4-10.2) mg/dL Disposition Clinical Impression: Pain of right calf Disposition: HOME SELF-CARE Condition: Stable Instructions: Deep Venous Thrombosis (ED), Leg Cramps (ED) Additional Instructions: At this time your ultrasound of the lower extremity to the calf knee and thigh is negative for a clot in the leg (DVT). Please follow up with your orthopedic surgeon within the next week for further evaluation. If he should have worsening symptoms of swelling pain or erythema (redness) to the leg please return to this ED for further treatment and evaluation. The patient also developed chest pain or shortness of breath this would be another sign to return to the ED for evaluation. Referrals: Turner Marquez DO [Primary Care Provider] - 1-2 days Jeffrey Cain MD [STAFF PHYSICIAN] - 1-2 days Time of Disposition: 17:22
[2017-11-05 17:33] VITALS: BP 144/65; PULSE 95; RESP 16; TEMP 97.8
== END 2017-11-05 17:41 | disposition home or self-care (01) ==
LOC: EC 13:46 → SUPCPDRO 13:46 → EC 17:41
DX: M79.604 Pain in right leg (principal); E78.5 Hyperlipidemia, unspecified; I10 Essential (primary) hypertension; M19.90 Unspecified osteoarthritis, unspecified site; E07.9 Disorder of thyroid, unspecified; F41.9 Anxiety disorder, unspecified; Z87.891 Personal history of nicotine dependence; Z79.82 Long term (current) use of aspirin; Z79.899 Other long term (current) drug therapy
CPT/HCPCS: 36415; 80048; 85025; 85379; 99284

== ENCOUNTER → 2017-12-23 | Outpatient (CLI) | payer MEDICARE ==
--- NOTE | 2017-12-23 15:33 | XR ---
EXAMINATION TYPE: XR chest 2V DATE OF EXAM: 12/23/2017 COMPARISON: NONE HISTORY: Cough TECHNIQUE: Frontal and lateral views of the chest are obtained. FINDINGS: There is no focal air space opacity, pleural effusion, or pneumothorax seen. The cardiac silhouette size is within normal limits. The osseous structures are intact. Postop change noted the right shoulder. There is mild spinal curvature. Thoracic spondylosis is noted. Questionable mass eff ect on the mainstem bronchi. IMPRESSION: No acute cardiopulmonary process. Additional findings above, consider chest CT.
== END | disposition home or self-care (01) ==
LOC: RADXRYALE 14:43
PROVIDERS: ATTEND Physician Assistant Medical
DX: R05 Cough (principal)
CPT/HCPCS: 71046

== ENCOUNTER → 2018-01-07 | Outpatient (CLI) | payer MEDICARE ==
[2018-01-07 18:19] LABS: Blood Urea Nitrogen 15 mg/dL (7-17)
--- NOTE | 2018-01-08 09:19 | CT ---
EXAMINATION TYPE: CT chest w con DATE OF EXAM: 01/07/2018 COMPARISON: Chest x-ray 12/23/2017 HISTORY: Cough x2 months and abnormal CXR. CT DLP: 267.9 mGycm, Automated exposure control for dose reduction was used. CONTRAST: Performed injected with 100ml mL of Isovue M300. TECHNIQUE: Axial images were obtained at 5 mm thick sections. Reconstructed images are reviewed on [employer] computer in the coronal plane. FINDINGS: Portion of the thyroid visualized is normal. No suspicious lung nodules or focal infiltrates are present. No enlarged mediastinal or hilar adenopathy is evident. There is some curvilinear course of the tra cheobronchial tree. No mass effect causing this deviation is evident. The mediastinum appears unremar kable. This may be normal variation possibly associated with the scoliosis. The ascending aorta diame ter at the level of the main pulmonary artery is 3.1 cm. The main pulmonary artery diameter at the b ifurcation is 2.[address] sections are obtained through the upper abdomen. Abdomen is essentially unremarkable. IMPRESSIONS: 1. No suspicious acute chest findings.
== END | disposition home or self-care (01) ==
LOC: RADCTMAIN 17:38
PROVIDERS: ATTEND Family Medicine
DX: R91.8 Other nonspecific abnormal finding of lung field (principal)
CPT/HCPCS: 82565; 84520; 71260; 36415; Q9967

== ENCOUNTER → 2018-10-28 | Outpatient (CLI) | payer MEDICARE ==
--- NOTE | 2018-10-28 13:50 | MM ---
Reason for exam: clinical finding. Last mammogram was performed 1 year and 1 month ago. History: Patient is postmenopausal. Excisional biopsy of the right breast. Took estrogen for 4 years 6 months. Took progesterone for 4 years 6 months. Physical Findings: Nurse did not find any significant physical abnormalities on exam. MG 3D Diag Mammo W/Cad KIERA Bilateral CC and MLO view(s) were taken. Prior study comparison: October 06, 2017, bilateral MG 3d screening mammo w/cad. January 16, 2017, right breast MG 3d diag mammo w/cad RT. The breast tissue is heterogeneously dense. This may lower the sensitivity of mammography. There is no discrete abnormality. No significant new findings when compared with previous films. These results were verbally communicated with the patient and result sheet given to the patient on 10/28/18. ASSESSMENT: Negative, BI-RAD 1 RECOMMENDATION: Routine screening mammogram of both breasts in 1 year. Manage patient on a clinical basis.
== END | disposition home or self-care (01) ==
LOC: RADMAMWWP 12:46
PROVIDERS: ATTEND Family Medicine
DX: N64.4 Mastodynia (principal)
CPT/HCPCS: 77066; G0279; 77062

== ENCOUNTER → 2020-05-01 | Outpatient (CLI) | payer MEDICARE ==
--- NOTE | 2020-05-01 15:54 | XR ---
Lumbosacral spine HISTORY: Lumbago, increasing low back pain 5 views of lumbosacral spine Comparison prior exam 03/14/2016 Lumbar vertebral bodies show preserved height. Bone mineralization is reduced. There is loss of disc height at intervertebral levels with associated vacuum phenomenon. Marked sclerosis, hypertrophic karrie nges present especially at L2-3. Sclerosis is present in the posterior elements consistent with facet arthropathy. Atherosclerotic vascular calcifications present within the aorta. There is no evident s pondylolysis or spondylolisthesis. There is a spinal curvature as noted on prior exam. IMPRESSION: Degenerative disc disease, facet arthropathy, osteopenia similar to prior exam.
== END | disposition home or self-care (01) ==
LOC: RADXRYALE 15:07
PROVIDERS: ATTEND Physician Assistant
DX: M51.36 Other intervertebral disc degeneration, lumbar region (principal); M47.896 Other spondylosis, lumbar region; M85.80 Other specified disorders of bone density and structure, unspecified site; M54.41 Lumbago with sciatica, right side
CPT/HCPCS: 72110

== ENCOUNTER → 2020-05-30 | Outpatient (CLI) | payer MEDICARE ==
--- NOTE | 2020-05-31 00:09 | MR ---
EXAMINATION TYPE: MR lumbar spine wo con DATE OF EXAM: 05/30/2020 COMPARISON: None HISTORY: Low back pain into jim lower extremities Multiplanar multiecho imaging of the lumbar spine was performed without contrast. Vertebra have normal alignment. There is narrowing of disc spaces from L2 to S1. There is small poste rior disc herniations from L2 to S1. There is developmentally adequate spinal canal and no significan t spinal stenosis. There is some mild lateral recess stenosis due to facet arthropathy at L3-4. There is small posterior right-sided L5-S1 lumbar disc herniation. There is narrowing of the left side L4- 5 neural foramen due to disc space narrowing and facet arthropathy. There is no compression fracture. There is no lumbar paraspinal mass. I see no focal bone destruction. Sacroiliac joints appear intact . IMPRESSION: Multilevel spondylotic changes. Multilevel mild lateral recess stenosis. No significant spinal stenos is. Left side L4-5 neural foraminal stenosis due to facet arthropathy and disc space narrowing.
== END | disposition home or self-care (01) ==
LOC: RADMRIMAIN 11:18
PROVIDERS: ATTEND Physician Assistant
DX: M48.061 Spinal stenosis, lumbar region without neurogenic claudication (principal); M47.26 Other spondylosis with radiculopathy, lumbar region
CPT/HCPCS: 72148

== ENCOUNTER → 2020-08-17 | Outpatient (CLI) | payer MEDICARE ==
--- NOTE | 2020-08-21 10:28 | MM ---
Reason for exam: screening (asymptomatic). Last mammogram was performed 1 year and 10 months ago. History: Patient is postmenopausal. Excisional biopsy of the right breast. Took hormonal contraceptives for 10 years. Took estrogen for 4 years 6 months. Took progesterone for 4 years 6 months. Physical Findings: A clinical breast exam by your physician is recommended on an annual basis and results should be correlated with mammographic findings. MG 3D Screening Mammo W/Cad Bilateral CC and MLO view(s) were taken. Prior study comparison: October 28, 2018, bilateral MG 3d diag mammo w/cad KIERA. October 06, 2017, bilateral MG 3d screening mammo w/cad. January 16, 2017, right breast MG 3d diag mammo w/cad RT. July 10, 2016, bilateral MG 3d screening mammo w/cad. The breast tissue is heterogeneously dense. This may lower the sensitivity of mammography. No significant changes when compared with prior studies. ASSESSMENT: Benign, BI-RAD 2 RECOMMENDATION: Routine screening mammogram of both breasts in 1 year.
== END | disposition home or self-care (01) ==
LOC: RADMAMWWP 14:07
PROVIDERS: ATTEND Family Medicine
DX: Z12.31 Encounter for screening mammogram for malignant neoplasm of breast (principal)
CPT/HCPCS: 77063; 77067

== ENCOUNTER → 2020-09-26 | Day surgery (SDC) | payer MEDICARE ==
[2020-09-21 12:15] VITALS: BMI 29.2
[~2020-09-26] MED LIST changes: -ACETAMINOPHEN TAB 500 MG TAB PO ONE; -DEXAMETHASONE SOD PHOSPHATE 10 MG/ML 1 ML VIAL IV ONE; -HYDROmorphone 0.5 MG/0.5 ML SYRINGE IVP PRN; +LACTATED RINGERS 1,000 ML IV SCH; +LIDOCAINE 1% (10MG/ML) FOR IV START INTRADERMA PRN; -LIDOCAINE 1% 20 ML VIAL (10MG/ML) FOR IV START INTRADERMA PRN; +LIDOCAINE 1% INJ 10MG/ML (20 ML MDV) ONE; -MELOXICAM 7.5 MG TAB PO ONE; -MIDAZOLAM 2 MG/2 ML VIAL IV PRN; -MORPHINE SULFATE 2 MG/ML SYRINGE IV PRN; -ONDANSETRON 4 MG/2 ML VIAL IVP ONE; +PROPOFOL 10 MG/ML 20 ML VIAL IV ONE; -SCOPOLAMINE 1.5MG/72HR PATCH TRANSDERM ONE; -TRANEXAMIC ACID 1,000 MG in SODIUM CHLORIDE 0.9% 50 ML IVPB ONE; -ceFAZolin IN SWFI 2 GM/20 ML SYRINGE IVP ONE; -fentaNYL (PF) 50 MCG/ML 2 ML AMP IV PRN
[2020-09-26 11:06] VITALS: RESP 16; TEMP 98.6
--- NOTE | 2020-09-26 11:46 | P.PCN ---
Date of Procedure: 09/26/20 Procedure(s) Performed: BRIEF HISTORY: Patient is a 80-year-old pleasant female scheduled for an elective colonoscopy as a part of positive cologuard and family history of colon cancer. PROCEDURE PERFORMED: Colonoscopy. PREOPERATIVE DIAGNOSIS: Positive cologuard family history of colon cancer. IV sedation per Anesthesia. PROCEDURE: After informed consent was obtained, the patient, was brought into the endoscopy unit. IV sedation was administered by Anesthesia under continuous monitoring. Digital rectal examination was normal. Initially the Olympus CF-160 flexible video colonoscope was then inserted in the rectum, gradually advanced into the cecum without any difficulty. Careful examination was performed as the scope was gradually being withdrawn. Ileocecal valve and the appendiceal orifice were visualized and appeared normal. Prep was excellent. Mucosa of the cecum, ascending colon, transverse colon, descending colon, sigmoid colon, and rectum appeared normal. At her sigmoid diverticulosis seen. Retroflexion was performed in the rectum and all internal hemorrhoids were seen. The patient tolerated the procedure well. IMPRESSION: Normal-appearing colon from rectum to cecum with no evidence of colorectal neoplasia Scattered sigmoid diverticulosis Small internal hemorrhoids . RECOMMENDATIONS: Findings of this examination were discussed with the patient as well as a family. She was advised to be a high-fiber diet and take fiber supplements a regular basis..
[2020-09-26 12:03] VITALS: BP 116/73; PULSE 98
== END ==
LOC: ORWHC2ENDO 09:43
PROVIDERS: ATTEND Internal Medicine Gastroenterology
DX: K57.30 Diverticulosis of large intestine without perforation or abscess without bleeding (principal); K64.8 Other hemorrhoids; Z80.0 Family history of malignant neoplasm of digestive organs; I10 Essential (primary) hypertension; E78.5 Hyperlipidemia, unspecified; F32.9 Major depressive disorder, single episode, unspecified; Z79.899 Other long term (current) drug therapy; Z79.82 Long term (current) use of aspirin
CPT/HCPCS: 45378; J2001; J2704

== ENCOUNTER → 2021-05-27 | Outpatient (CLI) | payer MEDICARE ==
[2021-05-27 14:52] LABS: HCT 46.3 % (34.0-46.0); HGB 14.7 gm/dL (11.4-16.0); MCH 29.9 pg (25.0-35.0); MCHC 31.9 g/dL (31.0-37.0); MCV 93.8 fL (80.0-100.0); Mean Platelet Volume 7.7; Platelet Count 312 k/uL (150-450); RBC 4.93 m/uL (3.80-5.40); RDW 12.7 % (11.5-15.5); WBC 7.6 k/uL (3.8-10.6)
[2021-05-27 14:55] LABS: Appearance,Urine Cloudy (Clear); Bacteria,Urine Rare /hpf; Bilirubin,Urine Negative (Negative); Blood,Urine Negative (Negative); Calcium Oxalate Crystals,Urine Rare /hpf; Color,Urine Yellow; Glucose,Urine (UA) Negative (Negative); Hyaline Casts,Urine 1 /lpf (0-2); Ketones,Urine Negative (Negative); Leukocyte Esterase,Urine Negative (Negative); Mucus,Urine Occasional /hpf; Nitrite,Urine Negative (Negative); PH, Urine 7.5 (5.0-8.0); Protein,Urine Negative (Negative); RBC,Urine 5 /hpf (0-5); Squamous Epithelial Cell,Urine 1 /hpf (0-4); WBC,Urine 2 /hpf (0-5)
[2021-05-27 15:03] LABS: INR 0.9 (<1.2); Partial Thromboplastin Time 22.2 sec (22.0-30.0); Prothrombin Time 10.1 sec (9.0-12.0)
[2021-05-27 15:08] LABS: ALT 20 U/L (4-34); AST 37 U/L (14-36); African American GFR (CKD) >90 (>60 ml/min/1.73 sqM); Albumin 4.2 g/dL (3.5-5.0); Alkaline Phosphatase 85 U/L (38-126); Anion Gap 10 mmol/L; Blood Urea Nitrogen 12 mg/dL (7-17); Calcium 9.8 mg/dL (8.4-10.2); Carbon Dioxide 29 mmol/L (22-30); Chloride 93 mmol/L (98-107); Glucose 100 mg/dL (74-99); Non-African American GFR(CKD) >90 (>60 ml/min/1.73 sqM); Sodium 132 mmol/L (137-145); Total Bilirubin 0.7 mg/dL (0.2-1.3); Total Protein 7.1 g/dL (6.3-8.2)
== END | disposition home or self-care (01) ==
LOC: LABWHC1 12:08
PROVIDERS: ATTEND Orthopaedic Surgery Sports Medicine
DX: Z01.818 Encounter for other preprocedural examination (principal); Z79.01 Long term (current) use of anticoagulants
CPT/HCPCS: 36415; 80053; 81001; 85027; 85610; 85730; 87070; 93005

== ENCOUNTER 2021-06-06 08:37 | Day surgery (SDC) | payer MEDICARE ==
[2021-06-04 12:19] VITALS: BMI 29.2
[~2021-06-06 08:37] MED LIST changes: +ACETAMINOPHEN TAB 500 MG TAB PO PRN; +GABAPENTIN 300 MG CAP PO PRN; +HYDROmorphone 0.5 MG/0.5 ML SYRINGE IVP PRN; -LIDOCAINE 1% (10MG/ML) FOR IV START INTRADERMA PRN; -LIDOCAINE 1% INJ 10MG/ML (20 ML MDV) ONE; +MELOXICAM 7.5 MG TAB PO PRN; +MIDAZOLAM 2 MG/2 ML VIAL IV PRN; +ONDANSETRON 4 MG/2 ML VIAL IVP PRN; -PROPOFOL 10 MG/ML 20 ML VIAL IV ONE; +TRANEXAMIC ACID 1,000 MG in SODIUM CHLORIDE 0.9% 100 ML IVPB PRN
[2021-06-06] MEDS ORDERED: LIDOCAINE 1% (10MG/ML) FOR IV START INTRADERMA ONE (09:15)
[2021-06-06] MEDS ORDERED: DEXAMETHASONE SOD PHOSPHATE 4 MG/ML 1 ML VIAL IVP ONE (09:30)
--- NOTE | 2021-06-06 09:44 | P.ANPRN ---
Procedure Note - Anesthesia - Nerve Block Performed Right Adductor Canal Infusion Time Out Performed: Yes (917) Date of Procedure: 06/06/21 Location of Patient: PreOp Indication: Acute Post-Operative Pain, Requested by Surgeon Specifically requested for management of pain by DrJesús: Jeffrey Cain Sedation Type: Sedate with meaningful contact maintained Preparation: Sterile Prep, Sterile Dressing Position: Supine Catheter: Indwelling Needle Types: Pajunk Needle Gauge: 18 Ultrasound used to visualize needle placement: Yes Ultrasound used to observe medication spread: Yes Injectate: 0.5% Ropivacaine (see comment for volume) (10 ml of 0.5% Ropivacaine mixed with 10 ml of 09% Nacl) Blood Aspirated: No Pain Paresthesia on Injection Noted: No Resistance on Injection: Normal Image Stored and Saved: Yes
--- NOTE | 2021-06-06 09:46 | P.ANPRN ---
Procedure Note - Anesthesia - Nerve Block Performed Right iPack Single Time Out Performed: Yes (917) Date of Procedure: 06/06/21 Location of Patient: PreOp Indication: Acute Post-Operative Pain, Requested by Surgeon Specifically requested for management of pain by DrJesús: Jeffrey Cain Sedation Type: Sedate with meaningful contact maintained Preparation: Sterile Prep, Sterile Dressing Position: Supine Catheter: None Needle Types: Pajunk Needle Gauge: 21 Ultrasound used to visualize needle placement: Yes Ultrasound used to observe medication spread: Yes Injectate: 0.5% Ropivacaine (see comment for volume) (10ml of 0.5% Ropivacaine mixed with 10 ml of 09% Nacl and 10 mg of dexamethasone) Blood Aspirated: No Pain Paresthesia on Injection Noted: No Resistance on Injection: Normal Image Stored and Saved: Yes
[2021-06-06] MEDS ORDERED: TRANEXAMIC ACID 1,000 MG/10 ML VIAL ONE (10:19)
[2021-06-06] MEDS ORDERED: diphenhydrAMINE 50 MG/ML 1 ML VIAL ONE (10:19)
[2021-06-06] MEDS ORDERED: SODIUM CHLORIDE 0.9% (PF) 10 ML VIAL ONE (10:19)
[2021-06-06] MEDS ORDERED: fentaNYL (PF) 50 MCG/ML 2 ML AMP ONE (10:19)
[2021-06-06] MEDS ORDERED: PHENYLEPHRINE-0.9% NACL SYG 1,000 MCG/10 ML SYRINGE ONE (10:19)
[2021-06-06] MEDS ORDERED: DEXAMETHASONE SOD PHOSPHATE 10 MG/ML 1 ML VIAL ONE (10:19)
[2021-06-06] MEDS ORDERED: PROPOFOL 10 MG/ML 20 ML VIAL IV ONE (10:19)
[2021-06-06] MEDS ORDERED: ROPIVACAINE 5 MG/ML 30 ML VIAL ONE (10:19)
[2021-06-06] MEDS ORDERED: MIDAZOLAM 2 MG/2 ML VIAL ONE (10:19)
[2021-06-06] MEDS ORDERED: KETAMINE 10 MG/ML 20 ML VIAL ONE (10:19)
[2021-06-06] MEDS ORDERED: SODIUM CHLORIDE 0.9% 100 ML BAG ONE (10:19)
[2021-06-06] MEDS ORDERED: ceFAZolin 3,000 MG in SODIUM CHLORIDE 0.9% IRRIGATIO 3,000 ML IRRIGATION ONE (10:23)
[2021-06-06] MEDS ORDERED: LACTATED RINGERS 1,000 ML IV ONE ×3 (10:50→13:04)
[2021-06-06] MEDS ORDERED: ROPIVACAINE 0.2%-NS ON-Q PUMP 1,090 MG, EMPTY PAIN BALL 1 EACH MISCELLANE PRN (12:24)
[2021-06-06] MEDS ORDERED: HYDROmorphone 0.5 MG/0.5 ML SYRINGE IVP PRN (12:39)
[2021-06-06] MEDS ORDERED: MAGNESIUM HYDROXIDE 2,400 MG/10 ML CUP PO PRN (12:39)
[2021-06-06] MEDS ORDERED: NA PHOS,M-B/NA PHOS,DI-BA 133 ML ENEMA RECTAL PRN (12:39)
[2021-06-06] MEDS ORDERED: HYDROmorphone 0.2 MG/1 ML SYRINGE IVP PRN (12:39)
[2021-06-06] MEDS ORDERED: NALOXONE 0.4 MG/ML 1 ML VIAL IV PRN (12:39)
[2021-06-06] MEDS ORDERED: HYDROcodone/APAP 5-325MG 1 EACH TAB PO PRN (12:39)
[2021-06-06] MEDS ORDERED: ACETAMINOPHEN TAB 325 MG TAB PO PRN (12:39)
[2021-06-06] MEDS ORDERED: traMADol 50 MG TAB PO PRN (12:39)
[2021-06-06] MEDS ORDERED: ONDANSETRON 4 MG/2 ML VIAL IVP PRN (12:39)
[2021-06-06] MEDS ORDERED: bisacodyL 10 MG SUPP RECTAL PRN (12:39)
--- NOTE | 2021-06-06 13:14 | XR ---
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 There is soft tissue edema and emphysema. IMPRESSION: 1. Postoperative change. Appears in near-anatomic alignment
--- NOTE | 2021-06-06 13:54 | OP ---
OPERATIVE REPORT DATE OF PROCEDURE: 06/06/2021. SURGEON: Jeffrey Cain MD. LOANS CONSULTANT: Lb PICKENS. PREOP DIAGNOSIS: Right knee osteoarthrosis. POSTOP DIAGNOSIS: Right knee osteoarthrosis. OPERATION: Right total knee arthroplasty. ANESTHESIA: Spinal with sedation. ESTIMATED BLOOD LOSS: 100 mL. TOURNIQUET TIME: 52 minutes at 250 mmHg. COMPLICATIONS: None apparent. DRAINS: None. DISPOSITION: Postanesthesia care unit. INDICATIONS: Zakia is a 81-year-old female with longstanding right knee pain. History and physical examination are consistent with advanced right knee osteoarthrosis. She has been through significant nonoperative management at this point. Further treatment options were discussed. She has decided to go forward with right total knee arthroplasty. The risks of procedure were discussed with her in detail. These risks include, but not limited to risk of infection, nerve damage, bleeding, pain, and a small risk of deep vein thrombosis which could lead to fatal pulmonary embolism. There is also risk of loosening of the implant which could require revision operation. The patient understands these risks. All of her questions were answered to her satisfaction. Appropriate informed consent was obtained. DESCRIPTION OF THE PROCEDURE: The patient identified in the preoperative holding area. Surgical sites marked by both the patient and myself. She was given 2 grams of Ancef IV prophylactic purposes. She was then transferred to the operative suite. She was placed supine on the operative table. Spinal anesthetic was then administered, dosed per the anesthesia without apparent complication. Examination under anesthesia was then performed. The patient was 2-3 degrees shy of full extension. She had 100 degrees of flexion. The medial collateral ligament, lateral collateral ligament, posterior cruciate ligaments were stable. Tourniquet was then placed high on the right upper thigh well-padded in preparation for surgery. The patient's right lower extremity was then prepped and draped in usual sterile fashion. Standard surgical pause undertaken to ensure the operating the correct site and that appropriate preoperative antibiotics were given. All staff in the room were in agreement and we proceeded. The outlines of the patella were marked with surgical pen. A planned 12 cm vertical incision centered over the patella was marked surgical pen. The leg was exsanguinated with an Esmarch dressing. The knee was then flexed and tourniquet inflated to 250 mmHg. Total tourniquet time for the procedure was 52 minutes. Incision was then made with a 10 blade scalpel. Dissection was carried down sharply overlying fascia. Great care was taken to minimize the skin flaps. The knee was then exposed using a standard medial parapatellar approach. A small cuff of quadriceps tendon was then left for suturing. She was in quite a bit of varus preoperatively. A standard medial release was then made. Superficial medial collateral ligament was dissected off the bone around the posterior aspect of the proximal tibia. The medial meniscus was then excised as well. The lateral meniscus was also released anteriorly. The leg was then externally rotated. The patella was everted. The knee was flexed. The retractors then placed to protect the collateral ligaments. I then proceeded to remove the infrapatellar fat pad. This was excised sharply tangentially with fibers of the patellar tendon. I then proceeded to remove the peripheral osteophytes. This was done with a rongeur. I then proceeded with the distal femoral resection. She did have near full extension. A planned 9 mm resection was then done. The femoral canal was then entered into the midline of the femur. Approximately 10 mm anterior to the origin of posterior cruciate ligament. The rhea was then advanced down the center of the femur and placed intramedullary. Based on preoperative radiographs, the angle to the anatomic and mechanical axis of the femur was approximately 4 to 5 degrees with a valgus angle. The distal femoral cutting guide was then set at 4 degrees for the right knee. The distal femoral cutting guide was then advanced over the intramedullary rhea. This was seated firmly against the femur. I then as mentioned planned to take 9 mm off the distal femur. The femoral cutting block was then secured onto the femur with pins. The jig was then removed. The distal femoral cut was made through the slot of the block. The pins then removed. The distal cutting block was removed. The accuracy of this femoral cuts was checked with 2 flat bars. I then proceeded to femoral sizing. Posterior referencing sizing guide was held firmly against the resected distal surface of the femur. The posterior condyles were resting on the posterior plane of the guide. The sizing guide was then placed on the anterior femur. The size measured a size 4. I then assessed for femoral rotation. Planned for 3 degrees external rotation. Three degrees external rotation was placed onto the jig. These holes were then marked. I then confirmed the rotation by 3 separate methods. This was done using epicondylar axis as well as Whitesides line and posterior referencing. It was deemed that the external rotation was proper. I then went forward with placing the femoral cutting block. This was placed over the previously placed pin holes. The Alexis wing was then placed on the anterior slots to ensure that we would not notch the anterior femur with the anterior femoral cut. I then proceeded with the anterior femoral cut. This was flush with the anterior cortex of the femur. Posterior cuts were then made followed by the anterior chamfer cut, then the posterior chamfer cut. The cutting block was then removed. Throughout the resection, collateral ligaments were protected with retractors. I then placed a trial size 4 femur. It was slightly wide, but the narrow fit very nicely and it fit flush with the distal end of the femur. The drill holes were made. I then proceed with the tibial cut. I planned for cruciate-retaining knee. The guide was placed and set for varus valgus and for slope and height was set for approximate 2 mm resection from the medial tibial plateau which was the lower side. I was happy with the alignment and amount of resection. The cutting block was then pinned to the proximal tibia. The alignment rhea was removed. Proximal tibia was resected with a reciprocating saw. This was done with retractors protecting the collateral ligaments as well as the posterior cruciate ligament. I then proceeded to evaluate the flexion extension gaps. A 10 mm block was then placed. The flexion and extension gaps were equal. I then proceeded with the resection of posterior osteophytes. Very minimal posterior osteophytes. This was done using a curved osteotome. This resected the posterior osteophytes and posterior capsule servings off the posterior aspect of the femur at this time. The osteophytes were then removed. I then proceeded with resection of the patella. The thickness of patella was measured using the caliper. The thickness was 22 mm. The thickness of the anticipated patellar dome was taken into account. Resection was then performed and confirmed to be equal in 4 quadrants using a caliper. Approximately 14 mm of bone remained after resection. A 29 x 8 standard patellar trial was then placed. The holes were drilled. Trial was then placed. I then proceeded with sizing tibial plate. A size C tibial plate fit very nicely. I then placed the trial femur tibial tray and patellar button. A 10 mm trial tibial insert was also placed. The components fit very nicely. She had full extension and flexion. The extension and flexion gaps were equal and stable to both varus and valgus stress. The patella tracked appropriately. Tibial tray rotation was marked with a Bovie. This was externally rotated properly. I then proceed with tibial preparation. First drilled the femoral holes, removed femoral component. The tibial tray was then set for proper external rotation as well as mediolateral placement onto the tibia. It was then pinned into place. I then proceeded with punching the keel. I then decided to proceed with cementing of all components. The knee was thoroughly irrigated with sterile saline solution via pulse lavage. The lateral geniculate artery was identified and cauterized. All blood was removed from the bone of the tibia femur and patella. Pulse lavaged, and then proceeded with cementing. Two packs of antibiotic bone cement were prepared on the back table by computer technical specialist. I then proceeded with cementing the tibia first. Cement was impacted in the keel as well as deeply seated into the bone. A second coat of cement was then placed. The tibia was then impacted into place. Excess cement was removed with Glendale's and Joker's. I then proceeded with cementing of the femoral component. The femoral component was also cemented using standard technique. Excess cement was removed. A 10 mm trial insert was then placed in the knee. It was brought in full extension with a constant axial load placed until the cement had hardened. The patellar component was then cemented. This was held firmly with a compressive device until the cement had dried. When the cement had dried, the knee was taken out of extension. All excess cement was removed from around the prosthesis. I then trialed the knee with a 10 mm insert. Flexion extension gaps were appropriate. The knee was stable. It came to full extension. I decided to go forward with 10 mm medial congruent cross-linked cruciate- retaining tibial insert. Polyethylene was then placed on the tibial tray and locked in place. The knee was then reduced. The knee was again further irrigated with sterile saline solution with antibiotic added. The tourniquet was then deflated. Total tourniquet time for the procedure was 52 minutes at 250 mmHg. Final components were Verónica Persona size 4 narrow cruciate-retaining femoral component, a size C tibial tray, a 10 mm medial congruent cruciate-retaining polyethylene insert, and a 29 x 8 mm patella. I then proceeded with closure. Again, the knee was thoroughly irrigated. The quadriceps tendon and the medial retinaculum were reapproximated with #2 Ethibond suture. The extensor mechanism was then closed with a running #2 Quill suture. Subcutaneous tissues were closed with 2-0 Vicryl interrupted suture. The skin was closed with a running 3-0 Quill suture. Dermabond applied to the incision. Sterile compressive dressings were applied. All sponge and needle counts were deemed correct prior to closure. The patient tolerated the procedure without apparent complication. She was transferred to the recovery room in stable condition. MMODL / IJN: [id number] /
[2021-06-06] MEDS: HYDROmorphone 0.5 MG/0.5 ML SYRINGE IVP PRN (16:37)
[2021-06-06] MEDS: LACTATED RINGERS 1,000 ML IV SCH (18:20)
[2021-06-06] MEDS ORDERED: SENNOSIDES-DOCUSATE SODIUM 1 EACH TAB PO SCH (21:00)
[2021-06-06] MEDS: ASPIRIN 81 MG PO SCH (21:38)
[2021-06-07] MEDS: HYDROmorphone 0.5 MG/0.5 ML SYRINGE IVP PRN (01:47)
[2021-06-07] MEDS: LACTATED RINGERS 1,000 ML IV SCH ×2 (01:47→08:14)
[2021-06-07 04:32] VITALS: BP 103/62
[2021-06-07] MEDS: HYDROcodone/APAP 10-325MG 1 EACH TAB PO PRN ×2 (05:43→11:31)
[2021-06-07 06:19] VITALS: PULSE 85; RESP 16; TEMP 98.2
--- NOTE | 2021-06-07 07:22 | P.PN ---
Progress Note - Text Progress Note Date: 06/07/21 Postoperative day # 1 status post total knee arthroplasty, and adductor canal catheter placed for postoperative analgesia, currently at ropivacaine 0.2% 8 mL per hour and continuous infusion, visual analogue scale is 5/10, patient using oral pain medication for breakthrough pain. Assessment and plan= Acute postoperative pain, adductor canal catheter for pain control, pain is well controlled we'll continue the same management.
[2021-06-07] MEDS: ASPIRIN 81 MG PO SCH (08:14)
[2021-06-07 09:13] LABS: Basophils # (A) 0.01 X 10*3/uL (0.00-0.10); Basophils % (A) 0.1 %; Eosinophils # (A) 0 X 10*3/uL (0.04-0.35); Eosinophils % (A) 0 %; HCT 38.1 % (37.2-46.3); HGB 12.2 g/dL (12.0-15.0); Lymphocytes # (A) 0.91 X 10*3/uL (0.90-5.00); MCH 29.9 pg (27.0-32.0); MCV 93.4 fL (80.0-97.0); Mean Platelet Volume 10.5 fL (9.5-12.2); Monocytes # (A) 0.91 X 10*3/uL (0.20-1.00); Neutrophils # (A) 9.46 X 10*3/uL (1.80-7.70); Neutrophils % (A) 83.4 %; Platelet Count 276 X 10*3/uL (140-440); RBC 4.08 X 10*6/uL (4.10-5.20); RDW 13.4 % (11.5-14.5); WBC 11.35 X 10*3/uL (4.50-10.00)
[2021-06-07] MEDS ORDERED: PSYLLIUM HUSK 100% 6 GM PACKET PO PRN (09:28)
[2021-06-07] MEDS ORDERED: MULTIVITAMINS, THERA 1 EACH TAB PO SCH (12:00)
--- NOTE | 2021-06-07 12:28 | P.CONS ---
History of Present Illness - Reason for Consult Leukocytosis - History of Present Illness Patient is a pleasant 72-year-old female admitted for elective left knee arthroplasty. patient blood pressure is low post surgery which is expected. Patient does take hydrocodone presently at home patient will hold off at a thiazide and is seen by primary care physician patient does have leukocytosis without any ev idence of infection patient up and denied any dysuria cough. REVIEW OF SYSTEMS: CONSTITUTIONAL: No fever, no malaise, no fatigue. HEENT: No recent visual problems or hearing problems. Denied any sore throat. CARDIOVASCULAR: No chest pain, orthopnea, PND, no palpitations, no syncope. PULMONARY: No shortness of breath, no cough, no hemoptysis. GASTROINTESTINAL: No diarrhea, no nausea, no vomiting, no abdominal pain. NEUROLOGICAL: No headaches, no weakness, no numbness. HEMATOLOGICAL: Denies any bleeding or petechiae. GENITOURINARY: Denies any burning micturition, frequency, or urgency. MUSCULOSKELETAL/RHEUMATOLOGICAL: Denies any joint pain, swelling, or any muscle pain. ENDOCRINE: Denies any polyuria or polydipsia. The rest of the 14-point review of systems is negative. PHYSICAL EXAMINATION: GENERAL: The patient is alert and oriented x3, not in any acute distress. Well developed, well nourished. HEENT: Pupils are round and equally reacting to light. EOMI. No scleral icterus. No conjunctival pallor. Normocephalic, atraumatic. No pharyngeal erythema. No thyromegaly. CARDIOVASCULAR: S1 and S2 present. No murmurs, rubs, or gallops. PULMONARY: Chest is clear to auscultation, no wheezing or crackles. ABDOMEN: Soft, nontender, nondistended, normoactive bowel sounds. No palpable organomegaly. MUSCULOSKELETAL: As mentioned in HPI EXTREMITIES: No cyanosis, clubbing, or pedal edema. NEUROLOGICAL: Gross neurological examination did not reveal any focal deficits. SKIN: No rashes. Assessment and plan -Leukocytosis reactive without any infection -mild sinus tachycardia secondary to pain which improved now with treatment of pain -Hypothyroidism continue with levothyroxine -Hyperlipidemia continue pravastatin -Right knee arthroplasty due to prophylaxis as per primary service. Management as per primary service -History of constipation patient will be given prescription for MiraLAX and patient is also going on 1 docusate as needed -Depression continue with Effexor Past Medical History Past Medical History: Hyperlipidemia, Hypertension, Osteoarthritis (OA), Thyroid Disorder Additional Past Medical History / Comment(s): Constipation. MIGRAINE HEADACHE, URINARY INCONTIENCE -WEARS A PAD History of Any Multi-Drug Resistant Organisms: None Reported Past Surgical History: Appendectomy, Joint Replacement, Orthopedic Surgery, Tubal Ligation Additional Past Surgical History / Comment(s): Radioactive iodine treatment in 1980 on thyroid.Total rt shoulder replacement Past Anesthesia/Blood Transfusion Reactions: No Reported Reaction Past Psychological History: Anxiety Smoking Status: Former smoker Past Alcohol Use History: Occasional Additional Past Alcohol Use History / Comment(s): STARTED SMOKING AT AGE 24 Quit smoking AT AGE 30 SMOKED 7 CIG PER DAY Past Drug Use History: None Reported - Past Family History Mother Family Medical History: Cancer Additional Family Medical History / Comment(s): Throat/jaw cancer Medications and Allergies Home Medications Medication Instructions Recorded Confirmed Type Aspirin [Adult Low Dose Aspirin EC] 81 mg PO DAILY 10/21/17 06/06/21 History Levothyroxine Sodium 88 mcg PO QAM 10/21/17 06/06/21 History Multivit-Min/FA/Lycopen/Lutein 1 tab PO HS 10/21/17 06/06/21 History [Centrum Silver Tablet] Pravastatin Sodium 80 mg PO HS 10/21/17 06/06/21 History Venlafaxine HCl ER [Effexor Xr] 75 mg PO HS 10/21/17 06/06/21 History Acetaminophen [Tylenol Extra 500 - 1,000 mg PO Q6H PRN 06/04/21 06/06/21 History Strength] Multivitamins, Thera [Multivitamin 1 tab PO DAILY 06/04/21 06/06/21 History (formulary)] Psyllium Husk [Metamucil] 0.4 gm PO BID PRN 06/04/21 06/06/21 History Aspirin [Adult Low Dose Aspirin EC] 81 mg PO BID #60 tab 06/06/21 Rx Docusate [Colace] 100 mg PO BID #60 capsule 06/06/21 Rx HYDROcodone/APAP 7.5-325MG [[place]ora 1 - 2 tab PO Q6HR PRN #42 tab 06/06/21 Rx 7.5-325] polyethylene glycoL 3350 [Miralax] 17 gm PO DAILY PRN #15 packet 06/07/21 Rx Allergies Allergy/AdvReac Type Severity Reaction Status Date / Time No Known Allergies Allergy Verified 06/06/21 08:51 Physical Exam Vitals: Vital Signs Temp Pulse Pulse Resp BP Pulse Ox 06/07/21 06:18 98.2 F 85 16 103/62 97 06/07/21 02:00 98.6 F 87 17 103/62 98 06/06/21 20:00 97.9 F 94 17 114/66 95 06/06/21 19:18 87 94 17 06/06/21 15:39 97.9 F 97 18 131/78 100 06/06/21 15:15 87 16 145/71 100 06/06/21 14:45 88 17 152/69 100 06/06/21 14:15 84 18 139/65 97 06/06/21 13:45 79 16 146/70 100 06/06/21 13:15 78 14 148/68 100 06/06/21 13:00 74 16 140/65 99 06/06/21 12:44 75 15 122/68 99 Intake and Output 06/06/21 06/07/21 06/07/21 22:59 06:59 14:59 Intake Total 150 Balance 150 Intake: IV 150 Other: # Voids 1 3 Weight 70.3 kg Results CBC & Chem 7: 06/07/21 06:03 Labs: Abnormal Lab Results - Last 24 Hours (Table) 06/07/21 Range/Units 06:03 WBC 11.35 H (4.50-10.00) X 10*3/uL RBC 4.08 L (4.10-5.20) X 10*6/uL Immature Gran # 0.06 H (0.00-0.04) X 10*3/uL Neutrophils # 9.46 H (1.80-7.70) X 10*3/uL Eosinophils # 0 L (0.04-0.35) X 10*3/uL
--- NOTE | 2021-06-07 14:52 | P.DS ---
Providers Expected date of discharge: 06/07/21 Attending physician: Jeffrey Cain Consults: 06/06/21 12:39 Consult Physician Routine Consulting Provider: Sabino Bajwa Consult Reason/Comments: post op medical management Do you want consulting provider notified?: Yes Primary care physician: Turner Marquez - Discharge Diagnosis(es) (1) Status post total right knee replacement Patient was admitted to the OR on 06/06/21 to undergo a right total knee arthroplasty. She had failed conservative measures as an outpatient and desired to proceed with elective surgery after given informed consent. She underwent the above procedure which she tolerated well without complication. Postoperative hospital course has remained without complication. On day of discharge she is afebrile, vital signs stable, labs within acceptable ranges, tolerating by mouth meds and diet, voiding without difficulty, positive flatus, denies abdominal pain or calf pain, pain is controlled on oral pain medication and has no new complaints. Wound is benign, neurovascular status is intact, calf is soft and nontender, abdomen soft and nontender. Review of systems is negative for numbness, tingling, fever, chills, chest pain, shortness of breath, nausea, vomiting, dizziness, headaches, slurred speech or other. Status: Acute Priority: Medium Procedures: Right total knee arthroplasty Patient Condition at Discharge: Good Plan - Discharge Summary Discharge Rx Participant: Yes New Discharge Prescriptions: New Aspirin [Adult Low Dose Aspirin EC] 81 mg PO BID #60 tab Docusate [Colace] 100 mg PO BID #60 capsule polyethylene glycoL 3350 [Miralax] 17 gm PO DAILY PRN #15 packet PRN Reason: Constipation HYDROcodone/APAP 7.5-325MG [[place] 7.5-325] 1 - 2 tab PO Q6HR PRN #42 tab PRN Reason: Pain Discontinued hydroCHLOROthiazide 25 mg PO QAM No Action Venlafaxine HCl ER [Effexor Xr] 75 mg PO HS Pravastatin Sodium 80 mg PO HS Multivit-Min/FA/Lycopen/Lutein [Centrum Silver Tablet] 1 tab PO HS Levothyroxine Sodium 88 mcg PO QAM Aspirin [Adult Low Dose Aspirin EC] 81 mg PO DAILY Acetaminophen [Tylenol Extra Strength] 500 - 1,000 mg PO Q6H PRN PRN Reason: Pain Control Psyllium Husk [Metamucil] 0.4 gm PO BID PRN PRN Reason: CONSTIPATION Multivitamins, Thera [Multivitamin (formulary)] 1 tab PO DAILY Discharge Medication List Aspirin [Adult Low Dose Aspirin EC] 81 mg PO DAILY 10/21/17 [History] Levothyroxine Sodium 88 mcg PO QAM 10/21/17 [History] Multivit-Min/FA/Lycopen/Lutein [Centrum Silver Tablet] 1 tab PO HS 10/21/17 [History] Pravastatin Sodium 80 mg PO HS 10/21/17 [History] Venlafaxine HCl ER [Effexor Xr] 75 mg PO HS 10/21/17 [History] Acetaminophen [Tylenol Extra Strength] 500 - 1,000 mg PO Q6H PRN 06/04/21 [History] Multivitamins, Thera [Multivitamin (formulary)] 1 tab PO DAILY 06/04/21 [History] Psyllium Husk [Metamucil] 0.4 gm PO BID PRN 06/04/21 [History] Aspirin [Adult Low Dose Aspirin EC] 81 mg PO BID #60 tab 06/06/21 [Rx] Docusate [Colace] 100 mg PO BID #60 capsule 06/06/21 [Rx] HYDROcodone/APAP 7.5-325MG [[place] 7.5-325] 1 - 2 tab PO Q6HR PRN #42 tab 06/06/21 [Rx] polyethylene glycoL 3350 [Miralax] 17 gm PO DAILY PRN #15 packet 06/07/21 [Rx] Follow up Appointment(s)/Referral(s): [facility], [NON-STAFF] - ([facility] will call you to schedule your home physical therapy visits. ) Turner Marquez DO [Primary Care Provider] - 06/11/21 9:20 am Jeffrey Cain MD [STAFF PHYSICIAN] - 06/18/21 3:00 pm Patient Instructions/Handouts: *Surgery [facility] - On-Q Pain Pump Discharge Instructions, Knee Replacement (DC) Activity/Diet/Wound Care/Special Instructions: Keep wound clean and dry Take meds as directed Follow-up with Dr. Cain in office Weight bear as tolerated May shower in 3 days if no bleeding Discharge Disposition: HOME WITH HOME HEALTH SERVICES
[2021-06-07] MEDS ORDERED: PRAVASTATIN SODIUM 80 MG TAB PO SCH (21:00)
[2021-06-07] MEDS ORDERED: VENLAFAXINE HCL ER 75 MG CAP PO SCH (21:00)
[2021-06-08] MEDS ORDERED: LEVOTHYROXINE 88 MCG TAB PO SCH (06:30)
== END 2021-06-07 11:51 | disposition home health service (06) ==
LOC: OR 08:37 → 4SSUR 15:16 → OR 06-07 11:51
PROVIDERS: ATTEND Orthopaedic Surgery Sports Medicine
DX: M17.11 Unilateral primary osteoarthritis, right knee (principal); I10 Essential (primary) hypertension; E78.5 Hyperlipidemia, unspecified; R45.0 Nervousness; E03.9 Hypothyroidism, unspecified; D72.829 Elevated white blood cell count, unspecified; Z20.822 Contact with and (suspected) exposure to COVID-19; R63.5 Abnormal weight gain; F41.9 Anxiety disorder, unspecified; Z97.3 Presence of spectacles and contact lenses; Z83.3 Family history of diabetes mellitus; Z82.49 Family history of ischemic heart disease and other diseases of the circulatory system; Z87.891 Personal history of nicotine dependence; R00.0 Tachycardia, unspecified; K59.00 Constipation, unspecified; Z96.611 Presence of right artificial shoulder joint; Z90.49 Acquired absence of other specified parts of digestive tract; Z98.51 Tubal ligation status; R32 Unspecified urinary incontinence; Z92.3 Personal history of irradiation; Z80.8 Family history of malignant neoplasm of other organs or systems; Z79.82 Long term (current) use of aspirin; Z79.890 Hormone replacement therapy; Z79.899 Other long term (current) drug therapy
CPT/HCPCS: 97161; 64999; 64448; 76942; 85025; 88300; 87635; 73560; 27447; C1776; C1713; J2250; J1200; J1100 ×2; J0690 ×3; J2405; J3010; J2795 ×2; J2370; J2704; J1170 ×2

== ENCOUNTER 2021-06-07 21:59 | Observation (INO) | payer MEDICARE ==
[2021-06-07] MEDS ORDERED: SODIUM CHLORIDE 0.9% 1,000 ML IV STA (22:32)
--- NOTE | 2021-06-07 23:22 | ED ---
Recheck HPI - General Chief Complaint: Extremity Problem,Nontraumatic Stated Complaint: Post-Op right knee pain Time Seen by Provider: 06/07/21 22:07 Source: patient, EMS Mode of arrival: EMS Limitations: physical limitation - Related Data Home Medications Medication Instructions Recorded Confirmed Aspirin [Adult Low Dose Aspirin EC] 81 mg PO DAILY 10/21/17 06/06/21 Levothyroxine Sodium 88 mcg PO QAM 10/21/17 06/06/21 Multivit-Min/FA/Lycopen/Lutein 1 tab PO HS 10/21/17 06/06/21 [Centrum Silver Tablet] Pravastatin Sodium 80 mg PO HS 10/21/17 06/06/21 Venlafaxine HCl ER [Effexor Xr] 75 mg PO HS 10/21/17 06/06/21 Acetaminophen [Tylenol Extra 500 - 1,000 mg PO Q6H PRN 06/04/21 06/06/21 Strength] Multivitamins, Thera [Multivitamin 1 tab PO DAILY 06/04/21 06/06/21 (formulary)] Psyllium Husk [Metamucil] 0.4 gm PO BID PRN 06/04/21 06/06/21 Previous Rx's Medication Instructions Recorded Aspirin [Adult Low Dose Aspirin EC] 81 mg PO BID #60 tab 06/06/21 Docusate [Colace] 100 mg PO BID #60 capsule 06/06/21 HYDROcodone/APAP 7.5-325MG [[place] 1 - 2 tab PO Q6HR PRN #42 tab 06/06/21 7.5-325] polyethylene glycoL 3350 [Miralax] 17 gm PO DAILY PRN #15 packet 06/07/21 Allergies Allergy/AdvReac Type Severity Reaction Status Date / Time No Known Allergies Allergy Verified 06/06/21 08:51 Review of Systems ROS Statement: Those systems with pertinent positive or pertinent negative responses have been documented in the HPI. ROS Other: All systems not noted in ROS Statement are negative. Past Medical History Past Medical History: Hyperlipidemia, Hypertension, Osteoarthritis (OA), Thyroid Disorder Additional Past Medical History / Comment(s): Constipation. (+) cologuard History of Any Multi-Drug Resistant Organisms: None Reported Past Surgical History: Appendectomy, Joint Replacement, Orthopedic Surgery, Tubal Ligation Additional Past Surgical History / Comment(s): Radioactive iodine treatment in 1980 on thyroid.Total rt shoulder replacement Past Anesthesia/Blood Transfusion Reactions: No Reported Reaction Past Psychological History: Anxiety Smoking Status: Never smoker Past Alcohol Use History: Occasional Past Drug Use History: None Reported - Past Family History Mother Family Medical History: Cancer Additional Family Medical History / Comment(s): Throat/jaw cancer General Exam Limitations: physical limitation Course Vital Signs 06/07/21 06/08/21 22:05 00:30 Temperature 98.8 F Pulse Rate 109 H 99 Respiratory 18 18 Rate Blood Pressure 133/73 115/61 O2 Sat by Pulse 95 95 Oximetry Medical Decision Making - Lab Data Result diagrams: 06/07/21 23:23 06/07/21 23:23 Lab Results 06/07/21 06/07/21 06/07/21 Range/Units 23:23 23:23 23:23 WBC 11.9 H (3.8-10.6) k/uL RBC 4.09 (3.80-5.40) m/uL Hgb 12.2 (11.4-16.0) gm/dL Hct 37.2 (34.0-46.0) % MCV 91.0 (80.0-100.0) fL MCH 29.9 (25.0-35.0) pg MCHC 32.9 (31.0-37.0) g/dL RDW 12.8 (11.5-15.5) % Plt Count 233 (150-450) k/uL MPV 7.7 Neutrophils % 83 % Lymphocytes % 10 % Monocytes % 5 % Eosinophils % 1 % Basophils % 0 % Neutrophils # 9.9 H (1.3-7.7) k/uL Lymphocytes # 1.2 (1.0-4.8) k/uL Monocytes # 0.6 (0-1.0) k/uL Eosinophils # 0.1 (0-0.7) k/uL Basophils # 0.0 (0-0.2) k/uL Sodium 131 L (137-145) mmol/L Potassium 4.1 (3.5-5.1) mmol/L Chloride 96 L (98-107) mmol/L Carbon Dioxide 31 H (22-30) mmol/L Anion Gap 4 mmol/L BUN 14 (7-17) mg/dL Creatinine 0.50 L (0.52-1.04) mg/dL Est GFR (CKD-EPI)AfAm >90 (>60 ml/min/1.73 sqM) Est GFR (CKD-EPI)NonAf >90 (>60 ml/min/1.73 sqM) Glucose 96 (74-99) mg/dL Calcium 8.8 (8.4-10.2) mg/dL Phosphorus 2.3 L (2.5-4.5) mg/dL Magnesium 1.6 (1.6-2.3) mg/dL Total Bilirubin 0.6 (0.2-1.3) mg/dL AST 45 H (14-36) U/L ALT 17 (4-34) U/L Alkaline Phosphatase 59 (38-126) U/L Troponin I <0.012 (0.000-0.034) ng/mL Total Protein 5.8 L (6.3-8.2) g/dL Albumin 3.2 L (3.5-5.0) g/dL - EKG Data -: EKG Interpreted by Me (EKG is sinus rhythm 98 WA 148 QRS 80 QTC 436) Disposition Clinical Impression: Status post total right knee replacement, Pain management Disposition: ADMITTED IP TO THIS HOSP Condition: Good Is patient prescribed a controlled substance at d/c from ED?: No Referrals: Turner Marquez DO [Primary Care Provider] - 1-2 days
[2021-06-07 23:41] LABS: Basophils % (A) 0 %; Eosinophils # (A) 0.1 k/uL (0-0.7); Eosinophils % (A) 1 %; HCT 37.2 % (34.0-46.0); HGB 12.2 gm/dL (11.4-16.0); Lymphocytes # (A) 1.2 k/uL (1.0-4.8); Lymphocytes % (A) 10 %; MCH 29.9 pg (25.0-35.0); MCHC 32.9 g/dL (31.0-37.0); Mean Platelet Volume 7.7; Monocytes # (A) 0.6 k/uL (0-1.0); Monocytes % (A) 5 %; Neutrophils # (A) 9.9 k/uL (1.3-7.7); Neutrophils % (A) 83 %; Platelet Count 233 k/uL (150-450); RBC 4.09 m/uL (3.80-5.40); RDW 12.8 % (11.5-15.5); WBC 11.9 k/uL (3.8-10.6)
[2021-06-08 00:20] LABS: ALT 17 U/L (4-34); AST 45 U/L (14-36); African American GFR (CKD) >90 (>60 ml/min/1.73 sqM); Albumin 3.2 g/dL (3.5-5.0); Alkaline Phosphatase 59 U/L (38-126); Anion Gap 4 mmol/L; Blood Urea Nitrogen 14 mg/dL (7-17); Calcium 8.8 mg/dL (8.4-10.2); Carbon Dioxide 31 mmol/L (22-30); Chloride 96 mmol/L (98-107); Glucose 96 mg/dL (74-99); Magnesium 1.6 mg/dL (1.6-2.3); Non-African American GFR(CKD) >90 (>60 ml/min/1.73 sqM); Phosphorus 2.3 mg/dL (2.5-4.5); Potassium 4.1 mmol/L (3.5-5.1); Sodium 131 mmol/L (137-145); Total Bilirubin 0.6 mg/dL (0.2-1.3); Total Protein 5.8 g/dL (6.3-8.2)
[2021-06-08] MEDS ORDERED: ONDANSETRON 4 MG/2 ML VIAL IVP PRN (00:36)
[2021-06-08] MEDS ORDERED: NALOXONE 0.4 MG/ML 1 ML VIAL IV PRN (00:36)
[2021-06-08] MEDS ORDERED: MORPHINE SULFATE 4 MG/ML SYRINGE IV STA (00:36)
[2021-06-08] MEDS: HYDROmorphone 1 MG/ML 1 ML SYRINGE IVP PRN ×2 (02:09→05:09)
[2021-06-08] MEDS ORDERED: DOCUSATE 100 MG CAP PO PRN (13:25)
[2021-06-08] MEDS ORDERED: PSYLLIUM HUSK 100% 6 GM PACKET PO PRN (13:25)
[2021-06-08] MEDS ORDERED: polyethylene glycoL 3350 17 GM POWD.PACK PO PRN (13:25)
--- NOTE | 2021-06-08 13:33 | P.HPIM ---
History of Present Illness This is a pleasant 81 years old female with past medical history of Hyperlipidemia, Hypertension, Osteoarthritis (OA), hypothyroidism, constipation, chronic back pain and she'll follow up with Dr. kirby, also she follows up with pain management clinic for her osteoarthritic pain Patient was discharged from the hospital yesterday 06/07 after hospitalization for right total knee arthroplasty on 06/06 for her severe osteoarthritis disease Home health care were unable to set up her pain pump properly so she was having significant pain, turned out her pump was accidentally turned off by home care which is resumed and patient is pain-free. This time patient presents because she was feeling weak, and the hospital she's been evaluated by PT and she was discharged with a walker. However at home she could not walk using the walker. Her had to hold her before she fell on the ground however she is slid into the floor and hurt her right side. The patient is complaining of from right shoulder and right hip pain with no li mitation of movement Review of Systems CONSTITUTIONAL: No fever, no malaise, no fatigue. HEENT: No recent visual problems or hearing problems. Denied any sore throat. CARDIOVASCULAR: No orthopnea, PND, no palpitations, no syncope. PULMONARY: No shortness of breath, no cough, no hemoptysis. GASTROINTESTINAL: No diarrhea, no nausea, no vomiting, no abdominal pain. Normoactive bowel sounds. NEUROLOGICAL: No headaches, no weakness, no numbness. HEMATOLOGICAL: Denies any bleeding or petechiae. GENITOURINARY: Denies any burning micturition, frequency, or urgency. MUSCULOSKELETAL/RHEUMATOLOGICAL: Denies any joint pain, swelling, or any muscle pain. ENDOCRINE: Denies any polyuria or polydipsia. Past Medical History Past Medical History: Hyperlipidemia, Hypertension, Osteoarthritis (OA), Thyroid Disorder Additional Past Medical History / Comment(s): Constipation. (+) cologuard History of Any Multi-Drug Resistant Organisms: None Reported Past Surgical History: Appendectomy, Joint Replacement, Orthopedic Surgery, Tubal Ligation Additional Past Surgical History / Comment(s): Radioactive iodine treatment in 1980 on thyroid.Total rt shoulder replacement Past Anesthesia/Blood Transfusion Reactions: No Reported Reaction Past Psychological History: Anxiety Smoking Status: Never smoker Past Alcohol Use History: Occasional Past Drug Use History: None Reported - Past Family History Mother Family Medical History: Cancer Additional Family Medical History / Comment(s): Throat/jaw cancer Medications and Allergies Home Medications Medication Instructions Recorded Confirmed Type Levothyroxine Sodium 88 mcg PO DAILY 10/21/17 06/08/21 History Multivit-Min/FA/Lycopen/Lutein 1 tab PO HS 10/21/17 06/08/21 History [Centrum Silver Tablet] Pravastatin Sodium 80 mg PO HS 10/21/17 06/08/21 History Venlafaxine HCl ER [Effexor Xr] 75 mg PO HS 10/21/17 06/08/21 History Acetaminophen [Tylenol Extra 500 - 1,000 mg PO Q6H PRN 06/04/21 06/08/21 History Strength] Psyllium Husk [Metamucil] 0.4 gm PO BID PRN 06/04/21 06/08/21 History HYDROcodone/APAP 7.5-325MG [[place] 1 - 2 tab PO Q6HR PRN #42 tab 06/06/21 06/08/21 Rx 7.5-325] polyethylene glycoL 3350 [Miralax] 17 gm PO DAILY PRN #15 packet 06/07/21 06/08/21 Rx Aspirin [Adult Low Dose Aspirin EC] 81 mg PO DAILY 06/08/21 06/08/21 History Docusate [Colace] 100 mg PO BID PRN 06/08/21 06/08/21 History Allergies Allergy/AdvReac Type Severity Reaction Status Date / Time No Known Allergies Allergy Verified 06/08/21 09:19 Physical Exam Vitals: Vital Signs Temp Pulse Resp BP Pulse Ox 06/08/21 00:30 99 18 115/61 95 06/07/21 22:05 98.8 F 109 H 18 133/73 95 Intake and Output 06/07/21 06/07/21 06/08/21 14:59 22:59 06:59 Other: Weight 68.946 kg GENERAL: The patient is alert and oriented x3, not in any acute distress. Well developed, well nourished. HEENT: Pupils are round and equally reacting to light. EOMI. No scleral icterus. No conjunctival pallor. Normocephalic, atraumatic. No pharyngeal erythema. No thyromegaly. CARDIOVASCULAR: S1 and S2 present. No murmurs, rubs, or gallops. PULMONARY: Chest is clear to auscultation, no wheezing or crackles. ABDOMEN: Soft, nontender, nondistended, normoactive bowel sounds. No palpable or ganomegaly. MUSCULOSKELETAL: No joint swelling or deformity. Right knee in a dressing, rest of exam is deferred to surgery team EXTREMITIES: No cyanosis, clubbing, or pedal edema. -NEUROLOGICAL: Cranial nerves are grossly intact. Mild weakness in her right shoulder abduction/extension. Very mild weakness in her left leg 4/5 in severity. Right leg examination is limited by recent surgery. Sensation is intact. Meningeal signs are absent SKIN: No rashes. No petechiae Results CBC & Chem 7: 06/07/21 23:23 06/07/21 23:23 Labs: Abnormal Lab Results - Last 24 Hours (Table) 06/07/21 06/07/21 Range/Units 23:23 23:23 WBC 11.9 H (3.8-10.6) k/uL Neutrophils # 9.9 H (1.3-7.7) k/uL Sodium 131 L (137-145) mmol/L Chloride 96 L (98-107) mmol/L Carbon Dioxide 31 H (22-30) mmol/L Creatinine 0.50 L (0.52-1.04) mg/dL Phosphorus 2.3 L (2.5-4.5) mg/dL AST 45 H (14-36) U/L Total Protein 5.8 L (6.3-8.2) g/dL Albumin 3.2 L (3.5-5.0) g/dL Assessment and Plan Assessment: Generalized weakness. Also patient complaining of from weakness and her both legs but had recent surgery to her right knee yesterday and weakness in her right shoulder which could be related to fall. Rule out neurological causes. Uncontrolled pain related to her recent surgery. Pain is better controlled now Recent history of right knee total arthroplasty on 06/06 Hypertension Hyperlipidemia History of osteoarthritis Hypothyroidism History of constipation chronic back pain Plan: This is a pleasant 81 years old female who presents with pain at surgical site Orthopedic consult. Pain management will be deferred to orthopedic team including pain pump. Pain management Check right shoulder and right hip x-ray. Check a bladder scan and urine analysis Consult neurology for her right upper extremity and lower extremity weakness although it could be related to a fall. Labs and medication were reviewed.. Continue same treatment. Continue with symptomatic treatment. Resume home medication. Monitor lytes and vitals. DVT and GI prophylaxis. Further recommendations depends on the clinical course of the patient DVT prophylaxis: Subcutaneous heparin GI Prophylaxis: Pepcid PT/OT: Pending Prognosis is guarded
--- NOTE | 2021-06-08 14:11 | XR ---
Right shoulder. HISTORY: Fall. COMPARISON: 10/29/2017. TECHNIQUE: 2 views the right shoulder were obtained. There is a right shoulder prosthesis within the proximal right humerus. There is no acute fracture or dislocation. IMPRESSION: Stable appearing right shoulder prosthesis without evidence of acute trauma.
--- NOTE | 2021-06-08 14:13 | XR ---
EXAMINATION TYPE: XR Hip Limited RT DATE OF EXAM: 06/08/2021 COMPARISON: NONE HISTORY: Fall. Hip pain TECHNIQUE: Single view FINDINGS: I see no fracture nor dislocation. Proximal femur is intact. Acetabulum is intact. IMPRESSION: Negative right hip exam.
[2021-06-08 15:25] LABS: Basophils % (A) 0 %; Eosinophils # (A) 0.1 k/uL (0-0.7); Eosinophils % (A) 1 %; HCT 35.5 % (34.0-46.0); HGB 11.4 gm/dL (11.4-16.0); Lymphocytes # (A) 0.9 k/uL (1.0-4.8); Lymphocytes % (A) 10 %; MCH 30.3 pg (25.0-35.0); MCHC 32.1 g/dL (31.0-37.0); MCV 94.3 fL (80.0-100.0); Mean Platelet Volume 7.8; Monocytes # (A) 0.6 k/uL (0-1.0); Monocytes % (A) 6 %; Neutrophils % (A) 82 %; Platelet Count 233 k/uL (150-450); RBC 3.76 m/uL (3.80-5.40); RDW 13.5 % (11.5-15.5); WBC 9.7 k/uL (3.8-10.6)
[2021-06-08 15:28] LABS: African American GFR (CKD) >90 (>60 ml/min/1.73 sqM); Anion Gap 5 mmol/L; Blood Urea Nitrogen 10 mg/dL (7-17); Calcium 8.3 mg/dL (8.4-10.2); Carbon Dioxide 26 mmol/L (22-30); Chloride 99 mmol/L (98-107); Creatine Kinase 395 U/L (30-135); Glucose 110 mg/dL (74-99); Non-African American GFR(CKD) >90 (>60 ml/min/1.73 sqM); Potassium 3.5 mmol/L (3.5-5.1); Sodium 130 mmol/L (137-145)
[2021-06-08] MEDS: HYDROcodone/APAP 7.5-325MG 1 EACH TAB PO PRN ×2 (16:00→23:15)
--- NOTE | 2021-06-08 19:57 | P.CNNES ---
History of Present Illness Consult date: 06/08/21 Reason for Consult: extremity weakness versus generalized weakness History of Present Illness: The patient is a 81-year-old female who is seen in neurologic consultation on June 08, 2021, via telemedicine. The patient was recently admitted to [facility] and had a right knee replacement because of severe osteoarthritis. The patient was reportedly assessed by physical therapy and discharged home with recommendations for using a walker for ambulation. At the time of discharge, patient was stable with a walker. Apparently when she got home she continued to have severe pain in her right knee, as well as back pain. Apparently the pain pump which was set up for her at discharge had inadvertently been turned off. The patient was experiencing overwhelming pain, with ambulation. Apparently the pain pump was turned back on and the patient took [place] for her pain yet, it continued to be out of control and she was unable to ambulate. Because of the severe pain her legs gave out. The patient also reports that she had not been eating or drinking fluids. The patient reportedly did not fall but was lowered to the g round. In addition, the patient has a history of back pain. She receives injections into her back. The patient denies left leg pain. The patient denies neck pain. The patient denies paresthesias involving her left leg. Past Medical History Past Medical History: Hyperlipidemia, Hypertension, Osteoarthritis (OA), Thyroid Disorder Additional Past Medical History / Comment(s): Constipation. (+) cologuard History of Any Multi-Drug Resistant Organisms: None Reported Past Surgical History: Appendectomy, Joint Replacement, Orthopedic Surgery, Tubal Ligation Additional Past Surgical History / Comment(s): Radioactive iodine treatment in 1980 on thyroid.Total rt shoulder replacement Past Anesthesia/Blood Transfusion Reactions: No Reported Reaction Past Psychological History: Anxiety Smoking Status: Never smoker Past Alcohol Use History: Occasional Past Drug Use History: None Reported - Past Family History Mother Family Medical History: Cancer Additional Family Medical History / Comment(s): Throat/jaw cancer Medications and Allergies Home Medications Medication Instructions Recorded Confirmed Type Levothyroxine Sodium 88 mcg PO DAILY 10/21/17 06/08/21 History Multivit-Min/FA/Lycopen/Lutein 1 tab PO HS 10/21/17 06/08/21 History [Centrum Silver Tablet] Pravastatin Sodium 80 mg PO HS 10/21/17 06/08/21 History Venlafaxine HCl ER [Effexor Xr] 75 mg PO HS 10/21/17 06/08/21 History Acetaminophen [Tylenol Extra 500 - 1,000 mg PO Q6H PRN 06/04/21 06/08/21 History Strength] Psyllium Husk [Metamucil] 0.4 gm PO BID PRN 06/04/21 06/08/21 History HYDROcodone/APAP 7.5-325MG [[place] 1 - 2 tab PO Q6HR PRN #42 tab 06/06/21 06/08/21 Rx 7.5-325] polyethylene glycoL 3350 [Miralax] 17 gm PO DAILY PRN #15 packet 06/07/21 06/08/21 Rx Aspirin [Adult Low Dose Aspirin EC] 81 mg PO DAILY 06/08/21 06/08/21 History Docusate [Colace] 100 mg PO BID PRN 06/08/21 06/08/21 History Allergies Allergy/AdvReac Type Severity Reaction Status Date / Time No Known Allergies Allergy Verified 06/08/21 09:19 Physical Examination - Vital Signs Vital Signs: Vital Signs Temp Pulse Pulse Resp BP BP Pulse Ox 06/08/21 14:32 99.8 F H 105 H 18 113/52 92 L 06/08/21 09:58 99.2 F 73 17 133/72 90 L 06/08/21 05:01 104/61 06/08/21 04:43 98 16 06/08/21 04:15 99.7 F H 98 16 97/54 94 L 06/08/21 03:40 82 20 110/62 97 06/08/21 02:13 99 18 107/60 94 L 06/08/21 00:30 99 18 115/61 95 06/07/21 22:05 98.8 F 109 H 18 133/73 95 Intake and Output 06/07/21 06/08/21 06/08/21 22:59 06:59 14:59 Output Total 400 Balance -400 Output: Urine 400 Other: Voiding Method Diaper External Catheter # Voids 1 Weight 68.946 kg 68.946 kg Gen.: The patient is reclining in the bed. She is well-nourished. She is in no acute distress. HEENT: Head is atraumatic, normocephalic. Fundus not visualized. There is no scleral icterus. Mucous membranes are moist. Neck: Without carotid bruits Heart: Regular rate and rhythm Extremities: Without edema Neurological examination Mental status: The patient is awake, alert and oriented 3. Her speech is clear. There is no dysarthria or aphasia. Cranial nerves: Pupils are equal at 3 mm and reactive. Visual fuentes are full to confrontation. Extraocular movements are intact. There is no nystagmus. Facial sensation is intact. There is no facial asymmetry. Hearing is grossly intact. Uvula and palate are midline. Shoulder shrug is symmetric. Tongue protrudes midline. Motor: Upper extremity strength is 5/5 with the exception of the right deltoid at 5-/5. Left hip flexor 4/5. Left hamstrings and ankle dorsiflexors 5/5. Right lower extremity strength 5/5. Sensory: Light touch sensation is grossly intact throughout. There is no extinction with double simultaneous stimulation. Coordination: Finger to nose and rapid alternating movements are intact. Deep tendon reflexes: 1+/4+ at the bilateral biceps reflexes. Left brachioradialis 2+/4+. Right brachioradialis absent. Left patellar reflex 2+/4+. Right patellar reflex not assessed. Gait not assessed Results - Laboratory Findings CBC and BMP: 06/08/21 15:06 06/08/21 15:05 Abnormal Lab Findings: Abnormal Labs 06/07/21 06/07/21 23:23 23:23 WBC 11.9 H Neutrophils # 9.9 H Sodium 131 L Chloride 96 L Carbon Dioxide 31 H Creatinine 0.50 L Phosphorus 2.3 L AST 45 H Total Protein 5.8 L Albumin 3.2 L Assessment and Plan Assessment: 1. Severe, overwhelming pain with reported lack of food and fluids, per patient, leading to legs giving out(weakness) and inability to get back up 2. History of severe osteoarthritis with back pain Plan: 1. Physical therapy for strengthening 2. Pain control 3. Adequate food and water intake, especially in the setting of narcotic medications Time with Patient: Greater than 30 (spent 40 minutes with patient via telemedicine)
--- NOTE | 2021-06-08 20:04 | P.CNOR ---
History of Present Illness - [facility] Consult date: 06/08/21 History of present illness: This patient is a 81-year-old female with a past medical history of hyperlipidemia, hypertension, hypothyroidism that is status-post right total knee arthroplasty on 06/06/[address] Cain. Patient was discharged home with home healthcare yesterday in stable condition. Patient states she arrived home and felt very weak. She states she was having issues getting up from the toilet and seated positions due to her weakness and pain in the right knee. She states her and son were home with her, and she was unable to get up off the toilet therefore EMS was called. Patient was transferred to [facility] emergency department last evening. EKG and labs are obtained. Patient was admitted under the care of internal medicine with a consult placed to orthopedic surgery due to recent postoperative status. Patient is seen and examined bedside this morning. She states she is feeling better since she has been admitted to the hospital. She states she has not been eating after surgery, but she did eat breakfast this morning. She states she has not had a bowel movement postoperatively and is feeling constipated. Per nursing, her Q ball pain pump was also clamped upon presentation to the floor. Patient states she did not take any pain medication while at home. She states overall she feels weak, and has no specific complaints at this time. Currently her right knee pain is well-controlled at this time. She denies falling onto right knee, she states her legs were weak and she was lowered gently to the ground by family and she did not fall. She denies chest pain, shortness breath, nausea, vomiting, fevers, chills, numbness or tingling of the right lower extremity. Vital signs stable. Past Medical History Past Medical History: Hyperlipidemia, Hypertension, Osteoarthritis (OA), Thyroid Disorder Additional Past Medical History / Comment(s): Constipation. (+) cologuard History of Any Multi-Drug Resistant Organisms: None Reported Past Surgical History: Appendectomy, Joint Replacement, Orthopedic Surgery, Tubal Ligation Additional Past Surgical History / Comment(s): Radioactive iodine treatment in 1980 on thyroid.Total rt shoulder replacement Past Anesthesia/Blood Transfusion Reactions: No Reported Reaction Past Psychological History: Anxiety Smoking Status: Never smoker Past Alcohol Use History: Occasional Additional Past Alcohol Use History / Comment(s): Quit smoking in the , smoked for 2 yrs. Past Drug Use History: None Reported - Past Family History Mother Family Medical History: Cancer Additional Family Medical History / Comment(s): Throat/jaw cancer Medications and Allergies Home Medications Medication Instructions Recorded Confirmed Type Levothyroxine Sodium 88 mcg PO DAILY 10/21/17 06/08/21 History Multivit-Min/FA/Lycopen/Lutein 1 tab PO HS 10/21/17 06/08/21 History [Centrum Silver Tablet] Pravastatin Sodium 80 mg PO HS 10/21/17 06/08/21 History Venlafaxine HCl ER [Effexor Xr] 75 mg PO HS 10/21/17 06/08/21 History Acetaminophen [Tylenol Extra 500 - 1,000 mg PO Q6H PRN 06/04/21 06/08/21 History Strength] Psyllium Husk [Metamucil] 0.4 gm PO BID PRN 06/04/21 06/08/21 History HYDROcodone/APAP 7.5-325MG [[place] 1 - 2 tab PO Q6HR PRN #42 tab 06/06/21 06/08/21 Rx 7.5-325] polyethylene glycoL 3350 [Miralax] 17 gm PO DAILY PRN #15 packet 06/07/21 06/08/21 Rx Aspirin [Adult Low Dose Aspirin EC] 81 mg PO DAILY 06/08/21 06/08/21 History Docusate [Colace] 100 mg PO BID PRN 06/08/21 06/08/21 History Allergies Allergy/AdvReac Type Severity Reaction Status Date / Time No Known Allergies Allergy Verified 06/08/21 09:19 Physical Examination On examination, the patient is sitting up in bed in no apparent distress. She is alert and oriented x3. Her head appears normocephalic and atraumatic. Her breathing appears nonlabored. Focused examination of the right knee is conducted. On inspection of the right knee, there is a healing incision of the anterior knee that appears benign. No erythema, fluctuance. No bleeding or drainage. There is very mild swelling of the knee. Motor and sensory function is intact of the right lower extremity. The right lower extremity is warm and well perfused with brisk capillary refill distally. Calves are soft and non-tender, no evidence of DVT. Results - Labs Labs: Abnormal Lab Results - Last 24 Hours (Table) 06/07/21 06/07/21 Range/Units 23:23 23:23 WBC 11.9 H (3.8-10.6) k/uL Neutrophils # 9.9 H (1.3-7.7) k/uL Sodium 131 L (137-145) mmol/L Chloride 96 L (98-107) mmol/L Carbon Dioxide 31 H (22-30) mmol/L Creatinine 0.50 L (0.52-1.04) mg/dL Phosphorus 2.3 L (2.5-4.5) mg/dL AST 45 H (14-36) U/L Total Protein 5.8 L (6.3-8.2) g/dL Albumin 3.2 L (3.5-5.0) g/dL H & H 06/07/21 Range/Units 23:23 Hgb 12.2 (11.4-16.0) gm/dL Hct 37.2 (34.0-46.0) % Result Diagrams: 06/08/21 15:06 06/08/21 15:05 Assessment and Plan Assessment: Status-post right total knee arthroplasty on 06/06/[address] Cain. Post- operative day #2. Re-admitted for pain control, weakness. Plan: - Patient may weight bear on tolerated on right lower extremity. Up with assistance, up with walker. - Keep incision protected with dry dressing. - Physical therapy for gait and balance training. - Pain management as needed. [place] 7.5/325 q6 hours as needed. - Aspirin 81mg BID has been ordered for DVT prophylaxis, otherwise DVT p rophylaxis per internal medicine. - Medical management per internal medicine team. - Case management has been consulted for discharge planning. Patient may need rehab on discharge.
[2021-06-08] MEDS ORDERED: FAMOTIDINE 20 MG/2 ML VIAL IV SCH (21:30)
[2021-06-08] MEDS: PRAVASTATIN SODIUM 80 MG TAB PO SCH (21:39)
[2021-06-08] MEDS: VENLAFAXINE HCL ER 75 MG CAP PO SCH (21:39)
[2021-06-08] MEDS: ASPIRIN 81 MG PO SCH (21:39)
[2021-06-08] MEDS: HEPARIN SODIUM,PORCINE/PF 5,000 UNIT/0.5 ML SYRINGE SQ SCH (21:42)
--- NOTE | 2021-06-08 23:50 | XR ---
EXAMINATION TYPE: XR chest 2V DATE OF EXAM: 06/08/2021 COMPARISON: 12/23/2017 HISTORY: Fever TECHNIQUE: FINDINGS: There is some mild blunting of the costophrenic angles. Heart size is normal. There are no hilar masses. There is right shoulder prosthesis. There is no heart failure. IMPRESSION: There are small bilateral pleural effusions which appear new compared to old exam. No obv ious heart failure.
[2021-06-09 00:04] LABS: Folate, Serum >20.00 ng/mL (4.40-31.00)
[2021-06-09] MEDS: LEVOTHYROXINE 88 MCG TAB PO SCH (05:54)
[2021-06-09] MEDS: HYDROcodone/APAP 7.5-325MG 1 EACH TAB PO PRN ×2 (05:54→17:57)
[2021-06-09 06:12] LABS: Appearance,Urine Cloudy (Clear); Bilirubin,Urine Negative (Negative); Blood,Urine Trace (Negative); Color,Urine Yellow; Glucose,Urine (UA) Negative (Negative); Ketones,Urine Trace (Negative); Leukocyte Esterase,Urine Negative (Negative); Mucus,Urine Many /hpf; Nitrite,Urine Negative (Negative); Protein,Urine Trace (Negative); RBC,Urine 4 /hpf (0-5); Specific Gravity,Urine 1.024 (1.001-1.035); Squamous Epithelial Cell,Urine 1 /hpf (0-4); Urobilinogen,Urine <2.0 mg/dL (<2.0); WBC,Urine 17 /hpf (0-5)
[2021-06-09] MEDS: FAMOTIDINE 20 MG TAB PO SCH ×2 (07:20→22:09)
[2021-06-09] MEDS: ASPIRIN 81 MG PO SCH ×2 (07:20→22:09)
[2021-06-09] MEDS: HEPARIN SODIUM,PORCINE/PF 5,000 UNIT/0.5 ML SYRINGE SQ SCH ×2 (07:20→22:09)
[2021-06-09] MEDS ORDERED: NON FORMULARY DRUG (Aspirin [Adult Low Dose Aspirin Ec] 81 MG Tablet) PO SCH (09:00)
--- NOTE | 2021-06-09 10:38 | P.PN ---
Subjective Progress Note Date: 06/09/21 This patient is a 81-year-old female with a past medical history of hyperlipidemia, hypertension, hypothyroidism that is status-post right total knee arthroplasty on 06/06/[address] Cain. Patient was discharged home with home healthcare yesterday in stable condition. Patient states she arrived home and felt very weak. She states she was having issues getting up from the toilet and seated positions due to her weakness and pain in the right knee. She states her and son were home with her, and she was unable to get up off the toilet therefore EMS was called. Patient was transferred to [facility] emergency department last evening. EKG and labs are obtained. Patient was admitted under the care of internal medicine with a consult placed to orthopedic surgery due to recent postoperative status. Patient is seen and examined bedside this morning. She states she is feeling better since she has been admitted to the hospital. She states she has not been eating after surgery, but she did eat breakfast this morning. She states she has not had a bowel movement postoperatively and is feeling constipated. Per nursing, her Q ball pain pump was also clamped upon presentation to the floor. Patient states she did not take any pain medication while at home. She states overall she feels weak, and has no specific complaints at this time. Currently her right knee pain is well-controlled at this time. She denies falling onto right knee, she states her legs were weak and she was lowered gently to the ground by family and she did not fall. She denies chest pain, shortness breath, nausea, vomiting, fevers, chills, numbness or tingling of the right lower extremity. Vital signs stable. 06/09/21: Patient is seen and examined bedside this morning. She states she still feels weak, but her pain is very well-controlled in the right knee today. She ate dinner and breakfast this morning. She overall feels improved compared to yesterday. Physical therapy has been ordered, although PT has not worked with patient yet. She was having right shoulder pain yesterday, although this is improved today. She denies right hip pain. She denies chest pain, shortness of breath, nausea, vomiting, fevers, chills, numbness or tingling of the right lower extremity. Vital signs stable. Objective - Vital Signs Vital signs: Vital Signs Temp 98.7 F 06/09/21 08:08 Pulse 94 06/09/21 08:08 Resp 18 06/09/21 08:08 BP 114/67 06/09/21 08:08 Pulse Ox 93 L 06/09/21 08:15 Intake & Output 06/08/21 06/09/21 06/09/21 19:59 06:59 18:59 Other: Voiding Method # Voids # Bowel Movements - Exam On examination, the patient is sitting up in bed in no apparent distress. She is alert and oriented x3. Her head appears normocephalic and atraumatic. Her breathing appears nonlabored. Focused examination of the right knee is conducted. On inspection of the right knee, there is a healing incision of the anterior knee that appears benign. The incision is healing very well. No erythema, fluctuance. No bleeding or drainage. There is very mild swelling of the knee. Motor and sensory function is intact of the right lower extremity. The right lower extremity is warm and well perfused with brisk capillary refill distally. Calves are soft and non-tender, no evidence of DVT. There is no pain with passive range of motion of the right hip. No pain with logrolling. On inspection of the right shoulder, there is healed incision with no erythema, warmth, swelling. No pain with PROM of the shoulder. Patient has full, active ROM of the shoulder with minimal pain motor and sensory function is intact of the right upper extremity. Radial pulse is easily palpable. The upper extremities warm and well-perfused with brisk capillary refill distally. - Labs CBC & Chem 7: 06/08/21 15:06 06/08/21 15:05 Labs: Abnormal Lab Results - Last 24 Hours (Table) 06/08/21 06/08/21 06/08/21 Range/Units 06:03 15:05 15:06 RBC 3.76 L (3.80-5.40) m/uL Neutrophils # 8.0 H (1.3-7.7) k/uL Lymphocytes # 0.9 L (1.0-4.8) k/uL Sodium 130 L (137-145) mmol/L Creatinine 0.45 L (0.52-1.04) mg/dL Glucose 110 H (74-99) mg/dL Calcium 8.3 L (8.4-10.2) mg/dL Creatine Kinase 395 H (30-135) U/L Urine Appearance Cloudy H (Clear) Urine Protein Trace H (Negative) Urine Ketones Trace H (Negative) Urine Blood Trace H (Negative) Urine WBC 17 H (0-5) /hpf Urine Mucus Many H (None) /hpf - Imaging and Cardiology Right shoulder x-ray 06/08/21: Right shoulder arthroplasty with no acute fractures identified. Right hip x-ray 06/08/21: No acute fractures identified. Assessment and Plan Assessment: Status-post right total knee arthroplasty on 06/06/[address] Cain. Post- operative day #3. Re-admitted for pain control, weakness. Plan: - Patient may weight bear on tolerated on right lower extremity. Up with assistance, up with walker. - Will obtain right knee x-rays. - Keep incision protected with dry dressing. - Physical therapy for gait and balance training. - Pain management as needed. [place] 7.5/325 q6 hours as needed. - Aspirin 81mg BID has been ordered for DVT prophylaxis, otherwise DVT prophylaxis per internal medicine. - Medical management per internal medicine team. - Discussed possible rehab on discharge, although patient is adamant she would like to return home with home health care. Recommend evaluation and clearance by physical therapy prior to discharge.
--- NOTE | 2021-06-09 10:56 | XR ---
EXAMINATION TYPE: XR knee complete RT DATE OF EXAM: 06/09/2021 COMPARISON: NONE HISTORY: Pain TECHNIQUE: Three views are submitted. FINDINGS: Postsurgical changes noted. Osseous structures are intact. No acute fracture seen. IMPRESSION: 1. No acute fracture or dislocation.
--- NOTE | 2021-06-09 11:15 | P.PN ---
Subjective This is a pleasant 81 years old female with past medical history of Hyperlipidemia, Hypertension, Osteoarthritis (OA), hypothyroidism, constipation, chronic back pain and she'll follow up with Dr. kirby, also she follows up with pain management clinic for her osteoarthritic pain Patient was discharged from the hospital yesterday 06/07 after hospitalization for right total knee arthroplasty on 06/06 for her severe osteoarthritis disease Home health care were unable to set up her pain pump properly so she was having significant pain, turned out her pump was accidentally turned off by home care which is resumed and patient is pain-free. This time patient presents because she was feeling weak, and the hospital she's been evaluated by PT and she was discharged with a walker. However at home she could not walk using the walker. Her had to hold her before she fell on the ground however she is slid into the floor and hurt her right side. The patient is complaining of from right shoulder and right hip pain with no limitation of movement 06/09/2021 Patient is still feels generally weak however no specific weakness although patient has been evaluated by neurologist. No further recommendation by neurologist and the recommend continue with conservative management and pain control with physical therapy. Vitals are stable. Patient is 10 in bed most of the time now. Yesterday she developed 2 episodes of low-grade temperature 99.7 and 99.8.. Creatinine kinase is only mildly elevated at 395. Her leukocytosis on admission at 11.9 and improved yesterday at 9.7. Repeat CBC from today is a still pending. Patient remains on aspirin 81 mg twice a day and subcu heparin and Pepcid. Orthopedic team on the patient to be evaluated by PT/OT tomorrow for possible subacute rehab. Check ultrasound of the lower leg. Monitor for any episodes of more fever. Urine analysis from yesterday is suspicious for infection and patient will be started on Rocephin and follow-up results of urine culture Objective - Vital Signs Vital signs: Vital Signs Temp 98.7 F 06/09/21 08:08 Pulse 94 06/09/21 08:08 Resp 18 06/09/21 08:08 BP 114/67 06/09/21 08:08 Pulse Ox 93 L 06/09/21 08:15 Intake & Output 06/08/21 06/09/21 06/09/21 19:59 06:59 18:59 Other: Voiding Method # Voids # Bowel Movements - Exam GENERAL: The patient is alert and oriented x3, not in any acute distress. Well developed, well nourished. HEENT: Pupils are round and equally reacting to light. EOMI. No scleral icterus. No conjunctival pallor. Normocephalic, atraumatic. No pharyngeal erythema. No thyromegaly. CARDIOVASCULAR: S1 and S2 present. No murmurs, rubs, or gallops. PULMONARY: Chest is clear to auscultation, no wheezing or crackles. ABDOMEN: Soft, nontender, nondistended, normoactive bowel sounds. No palpable organomegaly. MUSCULOSKELETAL: No joint swelling or deformity. Right knee in a dressing, and vertical wound closed with no apparent cellulitis or purulent discharge. rest of exam is deferred to surgery team -EXTREMITIES: No cyanosis, clubbing, or pedal edema. -NEUROLOGICAL: Cranial nerves are grossly intact. Mild weakness in her right shoulder abduction/extension. Very mild weakness in her left leg 4/5 in severity. Right leg examination is limited by recent surgery. Sensation is intact. Meningeal signs are absent SKIN: No rashes. No petechiae - Labs CBC & Chem 7: 06/08/21 15:06 06/08/21 15:05 Labs: Abnormal Lab Results - Last 24 Hours (Table) 06/08/21 06/08/21 06/08/21 Range/Units 06:03 15:05 15:06 RBC 3.76 L (3.80-5.40) m/uL Neutrophils # 8.0 H (1.3-7.7) k/uL Lymphocytes # 0.9 L (1.0-4.8) k/uL Sodium 130 L (137-145) mmol/L Creatinine 0.45 L (0.52-1.04) mg/dL Glucose 110 H (74-99) mg/dL Calcium 8.3 L (8.4-10.2) mg/dL Creatine Kinase 395 H (30-135) U/L Urine Appearance Cloudy H (Clear) Urine Protein Trace H (Negative) Urine Ketones Trace H (Negative) Urine Blood Trace H (Negative) Urine WBC 17 H (0-5) /hpf Urine Mucus Many H (None) /hpf Assessment and Plan Assessment: Acute urinary tract infection Generalized weakness. Mostly secondary to UTI. Rule out other neurological causes although less likely Uncontrolled pain related to her recent surgery. Pain is better controlled now Recent history of right knee total arthroplasty on 06/06 Hypertension Hyperlipidemia History of osteoarthritis Hypothyroidism History of constipation chronic back pain Plan: This is a pleasant 81 years old female who presents with pain at surgical site Orthopedic consult. Pain management will be deferred to orthopedic team inclu ding pain pump. Orthopedic team recommended PT/OT prior to discharge Start Rocephin and follow-up urine culture Consult neurology for her right upper extremity and lower extremity weakness although it could be related to a fall. Labs and medication were reviewed.. Continue same treatment. Continue with symptomatic treatment. Resume home medication. Monitor lytes and vitals. DVT and GI prophylaxis. Further recommendations depends on the clinical course of the patient DVT prophylaxis: Subcutaneous heparin GI Prophylaxis: Pepcid PT/OT: Pending Prognosis is guarded
--- NOTE | 2021-06-09 12:09 | US ---
EXAMINATION TYPE: US venous doppler duplex LE DATE OF EXAM: 06/09/2021 11:49 AM COMPARISON: US 2018 CLINICAL HISTORY: leg swelling. Recent right knee replacement, right leg pain and swelling Exam done portable SIDE PERFORMED: Bilateral TECHNIQUE: The lower extremity deep venous system is examined utilizing real time linear array sonog jayne with graded compression, doppler sonography and color-flow sonography. VESSELS IMAGED: Common Femoral Vein Deep Femoral Vein Greater Saphenous Vein * Femoral Vein Popliteal Vein Small Saphenous Vein * Proximal Calf Veins (* superficial vessels) Right mid femoral vein not imaged due to pain pump bandage, limited visualization of popliteal vein due to knee bandage Right Leg: Visualized portions appear negative for DVT Left Leg: Appears negative for DVT IMPRESSION: 1. Limited exam of the right as discussed above. See above. Visualized portions of the deep venous sy stem demonstrate no diagnostic evidence of DVT.
[2021-06-09 12:38] LABS: Basophils # (A) 0.05 X 10*3/uL (0.00-0.10); Basophils % (A) 0.6 %; Eosinophils # (A) 0.12 X 10*3/uL (0.04-0.35); Eosinophils % (A) 1.5 %; HCT 31.8 % (37.2-46.3); HGB 10.4 g/dL (12.0-15.0); Lymphocytes # (A) 0.93 X 10*3/uL (0.90-5.00); Lymphocytes % (A) 11.6 %; MCH 30.5 pg (27.0-32.0); MCHC 32.7 g/dL (32.0-37.0); MCV 93.3 fL (80.0-97.0); Mean Platelet Volume 11.4 fL (9.5-12.2); Monocytes # (A) 0.74 X 10*3/uL (0.20-1.00); Monocytes % (A) 9.3 %; Neutrophils # (A) 6.13 X 10*3/uL (1.80-7.70); Neutrophils % (A) 76.7 %; Platelet Count 206 X 10*3/uL (140-440); RBC 3.41 X 10*6/uL (4.10-5.20); RDW 13.9 % (11.5-14.5); WBC 7.99 X 10*3/uL (4.50-10.00)
[2021-06-09 12:43] LABS: African American GFR (CKD) 106.7 (60.0-200.0); Anion Gap 10.7 mmol/L (4.00-12.00); Calcium 8.5 mg/dL (8.7-10.3); Carbon Dioxide 28.3 mmol/L (21.6-31.8); Magnesium 1.8 mg/dL (1.5-2.4); Non-African American GFR(CKD) 92.1 (60.0-200.0); Potassium 3.8 mmol/L (3.5-5.5)
[2021-06-09 20:34] VITALS: RESP 16
[2021-06-09] MEDS: PRAVASTATIN SODIUM 80 MG TAB PO SCH (22:09)
[2021-06-09] MEDS: VENLAFAXINE HCL ER 75 MG CAP PO SCH (22:09)
[2021-06-10] MEDS: HYDROcodone/APAP 7.5-325MG 1 EACH TAB PO PRN ×2 (01:28→14:06)
[2021-06-10] MEDS: LEVOTHYROXINE 88 MCG TAB PO SCH (06:16)
[2021-06-10] MEDS: HEPARIN SODIUM,PORCINE/PF 5,000 UNIT/0.5 ML SYRINGE SQ SCH (08:31)
[2021-06-10] MEDS: ASPIRIN 81 MG PO SCH (08:31)
[2021-06-10] MEDS: FAMOTIDINE 20 MG TAB PO SCH (08:31)
--- NOTE | 2021-06-10 09:39 | P.PN ---
Subjective Progress Note Date: 06/10/21 Principal diagnosis: S/P right TKA Patient seen at bedside this am. She is S/P right TKA POD #4. She wasa readmitted over this past weekend due to pain control, weakness and nausea. She is doing better this morning. She states her pain is improved and controlled. Her appetite is better. She denies new complaints including numbness, tingling, fever, chills, chest pain or shortness of breath. Objective - Vital Signs Vital signs: Vital Signs Temp 99.2 F 06/10/21 01:23 Pulse 96 06/10/21 01:23 Resp 16 06/09/21 19:53 BP 136/74 06/10/21 01:23 Pulse Ox 91 L 06/10/21 01:23 Intake & Output 06/09/21 06/10/21 06/10/21 18:59 06:59 18:59 Other: Voiding Method Diaper # Voids 2 2 # Bowel Movements 0 - Exam Inspection reveals a benign surgical wound. There is no active bleeding or drainage. Neurovascular status is intact throughout the lower extremity with motor and sensation fully intact. Calf is soft and nontender. 2+ dorsalis pedis pulse and less than 2 second cap refill is present. - Constitutional General appearance: Present: no acute distress - Labs CBC & Chem 7: 06/09/21 08:00 06/09/21 08:00 Labs: Abnormal Lab Results - Last 24 Hours (Table) 06/09/21 06/09/21 Range/Units 08:00 08:00 RBC 3.41 L (4.10-5.20) X 10*6/uL Hgb 10.4 L (12.0-15.0) g/dL Hct 31.8 L (37.2-46.3) % Creatinine 0.5 L (0.6-1.5) mg/dL Calcium 8.5 L (8.7-10.3) mg/dL Creatine Kinase 284 H (26-186) U/L Microbiology - Last 24 Hours (Table) 06/08/21 06:03 Urine Culture - Preliminary Urine,Voided Assessment and Plan (1) Status post total right knee replacement Narrative/Plan: She is doing fine today overall. She may be discharged from orthopedic standpoint. She has pain medication prescription which I discussed with her in detail on taking different doses if needed. I also sent for Zofran. She is to follow up as scheduled. Thank you Current Visit: Yes Status: Acute Priority: Medium Code(s): Z96.651 - PRESENCE OF RIGHT ARTIFICIAL KNEE JOINT SNOMED Code(s): 7460554207705 Time with Patient: Less than 30
[2021-06-10 09:49] VITALS: BP 127/69; PULSE 95; TEMP 98.1
--- NOTE | 2021-06-13 03:43 | P.DS ---
Providers Date of admission: 06/08/21 00:38 Expected date of discharge: 06/10/21 Attending physician: Sabino Bajwa Consults: 06/08/21 00:38 Consult Physician Routine Consulting Provider: Jeffrey Cain Consult Reason/Comments: known Do you want consulting provider notified?: Yes 06/08/21 13:29 Consult Physician Urgent Consulting Provider: Jeannine Sandoval Consult Reason/Comments: Extremity weakness, versus generalized weakness Do you want consulting provider notified?: Yes Primary care physician: Turner Marquez Hospital Course: Final Diagnosis Acute urinary tract infection Generalized weakness. Mostly secondary to UTI. Ruled out other neurological causes although less likely Uncontrolled pain related to her recent surgery. Pain is better controlled now Recent history of right knee total arthroplasty on 06/06 Hypertension Hyperlipidemia History of osteoarthritis Hypothyroidism History of constipation chronic back pain Discharge disposition Patient is being discharged in a stable condition with guarded prognosis to home. Patient will follow-up with in the outpatient setting upon discharge. Patient is to follow-up with orthopedics in the outpatient setting . Patient to continue with oral ceftin 500 mg BID for 3 days to complete the course. Patient to continue with home care. Total time taken is greater than 35 minutes. Hospital course This is a pleasant 81 years old female with past medical history of Hyperlipidemia, Hypertension, Osteoarthritis (OA), hypothyroidism, constipation, chronic back pain and she'll follow up with Dr. kirby, also she follows up with pain management clinic for her osteoarthritic pain Patient was discharged from the hospital yesterday 06/07 after hospitalization for right total knee arthroplasty on 06/06 for her severe osteoarthritis disease Home health care were unable to set up her pain pump properly so she was having significant pain, turned out her pump was accidentally turned off by home care which is resumed and patient is pain-free. This time patient presents because she was feeling weak, and the hospital she's been evaluated by PT and she was discharged with a walker. However at home she could not walk using the walker. Her had to hold her before she fell on the ground however she is slid into the floor and hurt her right side. The patient is complaining of from right shoulder and right hip pain with no limitation of movement 06/09/2021 Patient is still feels generally weak however no specific weakness although patient has been evaluated by neurologist. No further recommendation by neurologist and the recommend continue with conservative management and pain control with physical therapy. Vitals are stable. Patient is 10 in bed most of the time now. Yesterday she developed 2 episodes of low-grade temperature 99.7 and 99.8.. Creatinine kinase is only mildly elevated at 395. Her leukocytosis on admission at 11.9 and improved yesterday at 9.7. Repeat CBC from today is a still pending. Patient remains on aspirin 81 mg twice a day and subcu heparin and Pepcid. Orthopedic team on the patient to be evaluated by PT/OT tomorrow for possible subacute rehab. Check ultrasound of the lower leg. Monitor for any episodes of more fever. Urine analysis from yesterday is suspicious for infection and patient will be started on Rocephin and follow-up results of urine culture 06/10/2021 Patient is seen in follow up this morning feeling much better and requesting to go home. Patient was evaluated by orthopedics and recommending outpatient follow up on discharge. Patient will continue on oral ceftin 500 mg BID for 3 days to complete the course on discharge. follow up urine cultures are negative. Currently no reports of chest pain, shortness of breath, or palpitations. Patient is afebrile. No reports of nausea or vomiting and patient is tolerating diet. Patient will be discharged home today. Patient is sitting up in the bed comfortably, no acute distress, awake alert and oriented.. HEENT: Normocephalic. Neck is supple. Pupils reactive. Nostrils clear. Oral cavity is moist. Neck reveals no JVD, carotid bruits, or thyromegaly. CHEST EXAMINATION: Trachea is central. Symmetrical expansion. Diminished breath sounds bilaterally with no wheezing or rhonchi noted CARDIAC: Normal S1, S2 with no gallops. No murmurs ABDOMEN: Soft. Bowel sounds normal. No organomegaly. No abdominal bruits. Extremities: reveal no edema. No clubbing or cyanosis Neurologically awake, alert, oriented x3 with well-coordinated movements. No focal deficits noted Skin: No rash or skin lesions. Psychiatric: Cooperative. Non-suicidal Musculoskeletal: No joint swelling or deformity. Normal range of motion. Please refer to medication reconciliation sheet for a list of medications. Patient Condition at Discharge: Good Plan - Discharge Summary Discharge Rx Participant: No New Discharge Prescriptions: New Ondansetron HCl [Zofran] 4 mg PO Q8H PRN #24 tab PRN Reason: Nausea And Vomiting Cefuroxime Axetil [Ceftin] 500 mg PO BID 3 Days #6 tab Continue Venlafaxine HCl ER [Effexor XR] 75 mg PO HS Pravastatin Sodium 80 mg PO HS Multivit-Min/FA/Lycopen/Lutein [Centrum Silver Tablet] 1 tab PO HS Levothyroxine Sodium 88 mcg PO DAILY Acetaminophen [Tylenol Extra Strength] 500 - 1,000 mg PO Q6H PRN PRN Reason: Pain Control Psyllium Husk [Metamucil] 0.4 gm PO BID PRN PRN Reason: CONSTIPATION polyethylene glycoL 3350 [Miralax] 17 gm PO DAILY PRN #15 packet PRN Reason: Constipation Docusate [Colace] 100 mg PO BID PRN PRN Reason: Constipation HYDROcodone/APAP 7.5-325MG [[place] 7.5-325] 1 - 2 tab PO Q6HR PRN #42 tab PRN Reason: Pain Aspirin [Adult Low Dose Aspirin EC] 81 mg PO DAILY Discharge Medication List Levothyroxine Sodium 88 mcg PO DAILY 10/21/17 [History] Multivit-Min/FA/Lycopen/Lutein [Centrum Silver Tablet] 1 tab PO HS 10/21/17 [History] Pravastatin Sodium 80 mg PO HS 10/21/17 [History] Venlafaxine HCl ER [Effexor XR] 75 mg PO HS 10/21/17 [History] Acetaminophen [Tylenol Extra Strength] 500 - 1,000 mg PO Q6H PRN 06/04/21 [History] Psyllium Husk [Metamucil] 0.4 gm PO BID PRN 06/04/21 [History] HYDROcodone/APAP 7.5-325MG [[place] 7.5-325] 1 - 2 tab PO Q6HR PRN #42 tab 06/06/21 [Rx] polyethylene glycoL 3350 [Miralax] 17 gm PO DAILY PRN #15 packet 06/07/21 [Rx] Aspirin [Adult Low Dose Aspirin EC] 81 mg PO DAILY 06/08/21 [History] Docusate [Colace] 100 mg PO BID PRN 06/08/21 [History] Cefuroxime Axetil [Ceftin] 500 mg PO BID 3 Days #6 tab 06/10/21 [Rx] Ondansetron HCl [Zofran] 4 mg PO Q8H PRN #24 tab 06/10/21 [Rx] Follow up Appointment(s)/Referral(s): [facility], [NON-STAFF] - Turner Marquez DO [Primary Care Provider] - 1-2 days Jeffrey Cain MD [STAFF PHYSICIAN] - 1 Week Patient Instructions/Handouts: Pain Management After Surgery (DC) Activity/Diet/Wound Care/Special Instructions: Weight bear as tolerated on operative leg. Up with assistance, up with a walker. Take pain medications as prescribed. Aspirin for blood clot prevention. Follow-up in the office with Dr. Cain as scheduled. Call the office with any questions or concerns, Activity Limited until follow-up Follow-up with primary care provider on discharge Continue taking antibiotics for 3 days until finished Encourage fluids and rest Discharge Disposition: HOME WITH HOME HEALTH SERVICES
== END 2021-06-10 15:33 | disposition home health service (06) ==
LOC: EC 21:59 → 4SSUR 06-08 00:38
PROVIDERS: ADMIT Hospitalist; ATTEND Hospitalist
DX: N39.0 Urinary tract infection, site not specified (principal); G89.18 Other acute postprocedural pain; M25.561 Pain in right knee; E78.5 Hyperlipidemia, unspecified; E03.9 Hypothyroidism, unspecified; Z20.822 Contact with and (suspected) exposure to COVID-19; I10 Essential (primary) hypertension; M25.551 Pain in right hip; M25.511 Pain in right shoulder; M19.90 Unspecified osteoarthritis, unspecified site; W19.XXXA Unspecified fall, initial encounter; F41.9 Anxiety disorder, unspecified; K59.00 Constipation, unspecified; Z79.890 Hormone replacement therapy; Z79.82 Long term (current) use of aspirin; Z87.891 Personal history of nicotine dependence; Z96.611 Presence of right artificial shoulder joint; Z96.651 Presence of right artificial knee joint; Z90.49 Acquired absence of other specified parts of digestive tract; Z98.51 Tubal ligation status; Z80.2 Family history of malignant neoplasm of other respiratory and intrathoracic organs
CPT/HCPCS: 99285; 96376; 96361; 96365; 96366; 96372 ×3; 96375 ×2; 36415; 94760; 93005; 97161; 97535; 97165; 80053; 80048 ×2; 82607; 82550 ×2; 82746; 83735 ×2; 84100; 84484; 85025 ×3; 81001; 87086; 87635; 73501; 73020; 73562; 71046; 93970; G0378 ×3; J2270; J2405; J0696 ×2; J1170; J1644 ×3

== ENCOUNTER 2025-01-26 02:05 | Emergency (ER) | payer MEDICARE ==
--- NOTE | 2025-01-26 03:57 | ED ---
Back Pain HPI - General Chief Complaint: Back Pain/Injury Stated Complaint: fall; back pain Time Seen by Provider: 01/26/25 03:30 Source: patient, RN notes reviewed, old records reviewed Mode of arrival: ambulatory Limitations: no limitations - History of Present Illness Initial Comments: This is a 84-year-old female to the ER for evaluation of fall patient had 2 falls today falling onto her back complaining of back pain and right hip pain she is able to bear weight and ambulate but has severe pain when doing so significant swelling or bruising to the back call her surgeon today she could not sleep he brings her to the emergency department, no loss of bowel or bladder and no neurological complaints MD Complaint: back pain, back injury, fall -: hour(s) (10) Similar Symptoms Previously: No Place: home Radiation: buttocks, right leg Severity: severe Severity scale (1-10): 8 Quality: sharp Consistency: constant Improves With: none Worsens With: movement, walking Context: fall Associated Symptoms: denies other symptoms - Related Data Home Medications Medication Instructions Recorded Confirmed Levothyroxine Sodium 88 mcg PO DAILY 10/21/17 06/08/21 Multivit-Min/FA/Lycopen/Lutein 1 tab PO HS 10/21/17 06/08/21 [Centrum Silver Tablet] Pravastatin Sodium 80 mg PO HS 10/21/17 06/08/21 Venlafaxine HCl ER [Effexor XR] 75 mg PO HS 10/21/17 06/08/21 Acetaminophen [Tylenol Extra 500 - 1,000 mg PO Q6H PRN 06/04/21 06/08/21 Strength] Psyllium Husk [Metamucil] 0.4 gm PO BID PRN 06/04/21 06/08/21 Aspirin [Adult Low Dose Aspirin EC] 81 mg PO DAILY 06/08/21 06/08/21 Docusate [Colace] 100 mg PO BID PRN 06/08/21 06/08/21 Previous Rx's Medication Instructions Recorded HYDROcodone/APAP 7.5-325MG [[place] 1 - 2 tab PO Q6HR PRN #42 tab 06/06/21 7.5-325] polyethylene glycoL 3350 [Miralax] 17 gm PO DAILY PRN #15 packet 06/07/21 cefuroxime axetiL [Ceftin] 500 mg PO BID 3 Days #6 tab 06/10/21 ondansetron HCL [Zofran] 4 mg PO Q8H PRN #24 tab 06/10/21 Allergies Allergy/AdvReac Type Severity Reaction Status Date / Time No Known Allergies Allergy Verified 01/26/25 02:08 Review of Systems ROS Statement: Those systems with pertinent positive or pertinent negative responses have been documented in the HPI. ROS Other: All systems not noted in ROS Statement are negative. Past Medical History Past Medical History: Hyperlipidemia, Hypertension, Osteoarthritis (OA), Thyroid Disorder Additional Past Medical History / Comment(s): Constipation. (+) cologuard History of Any Multi-Drug Resistant Organisms: None Reported Past Surgical History: Appendectomy, Joint Replacement, Orthopedic Surgery, Tubal Ligation Additional Past Surgical History / Comment(s): Radioactive iodine treatment in 1980 on thyroid.Total rt shoulder replacement Past Anesthesia/Blood Transfusion Reactions: No Reported Reaction Past Psychological History: Anxiety Smoking Status: Never smoker Past Alcohol Use History: Occasional Past Drug Use History: None Reported - Past Family History Mother Family Medical History: Cancer Additional Family Medical History / Comment(s): Throat/jaw cancer General Exam Limitations: no limitations General appearance: alert, in no apparent distress Head exam: Present: atraumatic, normocephalic, normal inspection Eye exam: Present: normal appearance, PERRL, EOMI. Absent: scleral icterus, conjunctival injection, periorbital swelling ENT exam: Present: normal exam, mucous membranes moist Neck exam: Present: normal inspection. Absent: tenderness, meningismus, lymphadenopathy Respiratory exam: Present: normal lung sounds bilaterally. Absent: respiratory distress, wheezes, rales, rhonchi, stridor Cardiovascular Exam: Present: regular rate, normal rhythm, normal heart sounds. Absent: systolic murmur, diastolic murmur, rubs, gallop, clicks GI/Abdominal exam: Present: soft, normal bowel sounds. Absent: distended, tenderness, guarding, rebound, rigid Extremities exam: Present: normal inspection, full ROM, normal capillary refill. Absent: tenderness, pedal edema, joint swelling, calf tenderness Back exam: Present: normal inspection Neurological exam: Present: alert, oriented X3, CN II-XII intact Psychiatric exam: Present: normal affect, normal mood Skin exam: Present: warm, dry, intact, normal color. Absent: rash Course Vital Signs 01/26/25 02:06 Temperature 97.9 F Pulse Rate 92 Respiratory 18 Rate Blood Pressure 129/69 O2 Sat by Pulse 95 Oximetry - Reevaluation(s) Reevaluation #1: 01/26/25 03:56 Medical records reviewed Reevaluation #2: 01/26/25 05:09 Patient's pain is well-controlled Reevaluation #3: 01/26/25 05:09 Patient informed of results questions answered Reevaluation #4: Was pt. sent in by a medical professional or institution (, [facility], [employer], urgent care, hospital, or shelter...) When possible be specific @ -no Did you speak to anyone other than the patient for history (EMS, parent, family, police, friend...)? What history was obtained from this source @ -no Did you review nursing and triage notes (agree or disagree)? Why? @ -agree Are old charts reviewed (outside hosp., previous admission, EMS record, old EKG, old radiological studies, urgent care reports/EKG's, shelter records)? Report findings @ -yes Differential Diagnosis (chest pain, altered mental status, abdominal pain women, abdominal pain men, vaginal bleeding, weakness, fever, dyspnea, syncope, headache, dizziness, GI bleed, back pain, seizure, CVA, palpatations, mental health, musculoskeletal)? @ -prior EKG interpreted by me (3pts min.). @ -yes X-rays interpreted by me (1pt min.). @ -yes negative for acute disease CT interpreted by me (1pt min.). @ -no U/S interpreted by me (1pt. min.). @ -no What testing was considered but not performed or refused? (CT, X-rays, U/S, labs)? Why? @ -none What meds were considered but not given or refused? Why? @ -none Did you discuss the management of the patient with other professionals (professionals i.e. [facility] Owen, [employer], lab, RT, psych nurse, director social welfare, lithographic proofer apprentice, teacher, chief communications officer, showcase trimmer)? Give summary @ -no Was smoking cessation discussed for >3mins.? @ -no Was critical care preformed (if so, how long)? @ -no Were there social determinants of health that impacted care today? How? (Homelessness, low income, unemployed, alcoholism, drug addiction, transportation, low edu. Level, literacy, decrease access to med. care, fci, rehab)? @ -none Was there de-escalation of care discussed even if they declined (Discuss DNR or withdrawal of care, Hospice)? DNR status @ -no What co-morbidities impacted this encounter? (DM, HTN, Smoking, COPD, CAD, Cancer, CVA, ARF, Chemo, Hep., AIDS, mental health diagnosis, sleep apnea, morbid obesity)? @ -none Was patient admitted / discharged? Hospital course, mention meds given and route, prescriptions, significant lab abnormalities, going to OR and other pertinent info. @ - Undiagnosed new problem with uncertain prognosis? @ -no Drug Therapy requiring intensive monitoring for toxicity (Heparin, Nitro, Insulin, Cardizem)? @ -no Were any procedures done? @ -no Diagnosis/symptom? @ - Acute, or Chronic, or Acute on Chronic? @ -Acute Uncomplicated (without systemic symptoms) or Complicated (systemic symptoms)? @ -Complicated Side effects of treatment? @ -no Exacerbation, Progression, or Severe Exacerbation? @ -exacerbation Poses a threat to life or bodily function? How? (Chest pain, USA, OR, pneumonia, PE, COPD, DKA, ARF, appy, cholecystitis, CVA, Diverticulitis, Homicidal, Suicidal, threat to staff... and all critical care pts) @ -yes Reevaluation #5: Differential Back Pain: Strain, zoster, cauda equina syndrome, epidural abscess, vertebral osteomyelitis, discitis, fracture, subluxation, disc herniation, DJD, spinal stenosis, dissection, AAA, pancreatitis, peptic ulcer disease, pyelonephritis, kidney stone, this is not meant to be an all-inclusive list. Medical Decision Making - Medical Decision Making 84 female to the ER for evaluation of a fall fall with back contusion back swelling bruising, patient has no traumatic injury noted on x-rays. Patient's pain is controlled here in the ER and patient feels well can be discharged home - Radiology Data Radiology results: report reviewed (X-ray LS spine right hip and pelvis negative for traumatic injury), image reviewed Disposition Clinical Impression: Fall, Back contusion, Pain management Disposition: ADMITTED IP TO THIS HOSP Condition: Fair Instructions (If sedation given, give patient instructions): Acute Low Back Pain (ED) Is patient prescribed a controlled substance at d/c from ED?: No Referrals: Turner Marquez DO [Primary Care Provider] - 1-2 days Time of Disposition: 05:30
[2025-01-26] MEDS: HYDROmorphone 0.5 MG/0.5 ML SYRINGE IM STA (04:51)
[2025-01-26] MEDS: ONDANSETRON ODT 4 MG TAB PO STA (04:59)
[2025-01-26] MEDS: diphenhydrAMINE 25 MG CAP PO STA (05:02)
--- NOTE | 2025-01-26 05:39 | XR ---
EXAM: XR Pelvis, 1 or 2 Views CLINICAL HISTORY: fell and hurt her back TECHNIQUE: Frontal view of the pelvis. Frontal and lateral views of right hip COMPARISON: No relevant prior studies available. FINDINGS: Bones/joints: No fracture or dislocation. Moderate degenerative disc disease in the visualized lower lumbar spine. Osteopenia. Soft tissues: Unremarkable. IMPRESSION: No fracture
--- NOTE | 2025-01-26 05:40 | XR ---
EXAM: XR Lumbosacral Spine, 2 or 3 Views CLINICAL HISTORY: fall TECHNIQUE: Frontal and lateral views of the lumbar spine and sacrum. COMPARISON: Lumbar MRI from 05/30/2020 FINDINGS: Vertebrae: Moderate mid lumbar scoliosis convexed to the left. No compression fracture. No subluxation. Sacrum/coccyx: Unremarkable as visualized. No acute fracture. Disc spaces: Moderate degenerative disc disease. Soft tissues: Paravertebral soft tissues appear normal. IMPRESSION: No compression fracture. No subluxation. No substantial change.
[2025-01-26] MEDS: traMADol 50 MG STARTER PACK 3 TAB BTL PO STA (05:52)
[2025-01-26] MEDS: LIDOCAINE 4% PATCH TOPICAL STA (05:52)
[2025-01-26] MEDS: KETOROLAC 15 MG/ML 1 ML VIAL IM STA (06:33)
[2025-01-26] MEDS: traMADol 50 MG TAB PO STA (06:35)
[2025-01-26 06:47] VITALS: BP 119/75; PULSE 81; RESP 20; TEMP 97.8
== END 2025-01-26 06:47 | disposition other institution (70) ==
LOC: EC 02:05
DX: S20.229A Contusion of unspecified back wall of thorax, initial encounter (principal); W19.XXXA Unspecified fall, initial encounter; Y93.01 Activity, walking, marching and hiking
CPT/HCPCS: 72100; 73502; 99284; 96372 ×2; J1885; J1171